=== PATIENT | female | born 1980 | race Caucasian/White ===

== ENCOUNTER → 2016-08-31 | Outpatient (CLI) | payer OTHER ==
--- NOTE | 2016-08-31 11:43 | USB ---
Reason for exam: clinical finding. Indicated problem(s): pain in the left breast. Physical Findings: Nurse Summary: bilateral nodularity, all soft, nodular, movable (nurse ts). US Breast LT Left breast ultrasound including all four quadrants, the retroareolar region and axilla demonstrates a 1.84 x 1.11 x 1.07cm lymph node at the axilla tail. These results were verbally communicated with the patient and result sheet given to the patient on 08/31/16. ASSESSMENT: Probably benign, BI-RAD 3 RECOMMENDATION: Clinical management of the left breast. Manage patient on a clinical basis.
== END ==
LOC: RADUSWWP 10:04
PROVIDERS: ATTEND Surgery
DX: N64.4 Mastodynia (principal)

== ENCOUNTER → 2017-02-10 | Outpatient (CLI) | payer OTHER ==
--- NOTE | 2017-02-10 14:50 | MM ---
Reason for exam: screening (asymptomatic). Physical Findings: Nurse did not find any significant physical abnormalities on exam. MG 3D Screening Mammo W/Cad Bilateral CC and MLO view(s) were taken. There are scattered fibroglandular densities. There is no discrete abnormality. These results were verbally communicated with the patient and result sheet given to the patient on 02/10/17. ASSESSMENT: Negative, BI-RAD 1 RECOMMENDATION: Routine screening mammogram of both breasts at age 38. Manage on a clinical basis with regard to left axilla pain.
== END | disposition home or self-care (01) ==
LOC: RADMAMWWP 12:59
PROVIDERS: ATTEND Obstetrics & Gynecology
DX: Z12.31 Encounter for screening mammogram for malignant neoplasm of breast (principal)
CPT/HCPCS: 77063; G0202

== ENCOUNTER → 2018-01-31 | Outpatient (CLI) | payer OTHER ==
[2018-01-31 09:49] LABS: ALT 49 U/L (9-52); AST 22 U/L (14-36); Albumin 4.1 g/dL (3.5-5.0); Alkaline Phosphatase 75 U/L (38-126); Anion Gap 12 mmol/L; Blood Urea Nitrogen 18 mg/dL (7-17); Calcium 9.2 mg/dL (8.4-10.2); Carbon Dioxide 23 mmol/L (22-30); Chloride 106 mmol/L (98-107); Glucose 89 mg/dL (74-99); Potassium 4.6 mmol/L (3.5-5.1); Sodium 141 mmol/L (137-145); Total Bilirubin 0.6 mg/dL (0.2-1.3)
[2018-01-31 09:51] LABS: HCT 40.8 % (34.0-46.0); HGB 13.6 gm/dL (11.4-16.0); MCH 30.5 pg (25.0-35.0); MCHC 33.4 g/dL (31.0-37.0); MCV 91.5 fL (80.0-100.0); Mean Platelet Volume 7.5; Platelet Count 220 k/uL (150-450); RBC 4.46 m/uL (3.80-5.40)
== END | disposition home or self-care (01) ==
LOC: LABWHC1 08:49
PROVIDERS: ATTEND Internal Medicine Cardiovascular Disease
DX: I48.91 Unspecified atrial fibrillation (principal)
CPT/HCPCS: 36415; 80053; 84439; 84443; 85027

== ENCOUNTER → 2020-02-18 | Outpatient (CLI) | payer BC ==
--- NOTE | 2020-02-19 10:05 | MM ---
Reason for exam: screening (asymptomatic). Last mammogram was performed 3 years ago. Physical Findings: A clinical breast exam by your physician is recommended on an annual basis and results should be correlated with mammographic findings. MG 3D Screening Mammo W/Cad Bilateral CC, MLO, and XCCL view(s) were taken. Prior study comparison: February 10, 2017, bilateral MG 3d screening mammo w/cad. There are scattered fibroglandular densities. There is no discrete abnormality. No significant changes when compared with prior studies. ASSESSMENT: Negative, BI-RAD 1 RECOMMENDATION: Routine screening mammogram of both breasts in 1 year.
== END | disposition home or self-care (01) ==
LOC: RADMAMWWP 15:57
PROVIDERS: ATTEND Obstetrics & Gynecology
DX: Z12.31 Encounter for screening mammogram for malignant neoplasm of breast (principal)
CPT/HCPCS: 77063; 77067

== ENCOUNTER → 2020-05-26 | Day surgery (SDC) | payer BC ==
[2020-05-22 12:40] VITALS: BMI 49.1
[~2020-05-26] MED LIST: LACTATED RINGERS 1,000 ML IV SCH; LIDOCAINE 1% (10MG/ML) FOR IV START INTRADERMA ONE; MIDAZOLAM 2 MG/2 ML VIAL ONE; PROPOFOL 10 MG/ML 20 ML VIAL IV ONE
[2020-05-26 07:36] VITALS: TEMP 97.9
--- NOTE | 2020-05-26 08:44 | P.PCN ---
Date of Procedure: 05/26/20 Description of Procedure: BRIEF HISTORY: Patient is a 39-year-old female presenting for outpatient colonoscopy for screening malignant neoplasm colon. 2 prior colonoscopies in the past. Personal history of colon cancer in mother at the age of 50. No prior polyps. She does report that her brother has had polyps removed. PROCEDURE PERFORMED: Colonoscopy. PREOPERATIVE DIAGNOSIS: Screening malignant neoplasm of the colon, family history of colon cancer in her mother at the age of 50, last colonoscopy 5 years ago. ESTIMATED BLOOD LOSS: Minimal. IV sedation per Anesthesia. PROCEDURE: After informed consent was obtained, the patient, was brought into the endoscopy unit. IV sedation was administered by Anesthesia under continuous monitoring. Digital rectal examination was normal. Initially the Olympus CF-190 flexible video colonoscope was then inserted in the rectum, gradually advanced into the cecum without any difficulty. Careful examination was performed as the scope was gradually being withdrawn. Ileocecal valve and the appendiceal orifice were visualized and appeared normal. Prep was excellent. Mucosa of the cecum, ascending colon, transverse colon, descending colon, sigmoid colon, and rectum appeared normal. Retroflexion was performed in the rectum and no lesions were seen, low-grade internal hemorrhoids seen. The patient tolerated the procedure well. IMPRESSION: Normal-appearing colon from rectum to cecum. RECOMMENDATIONS: Findings of this examination were discussed with the patient and her . Okay to resume diet. Okay to resume medications. Would recommend repeat colonoscopy in 5 years for family history of colon cancer.
[2020-05-26 08:48] VITALS: RESP 17
[2020-05-26 09:03] VITALS: BP 101/65; PULSE 87
== END ==
LOC: ORWHC2ENDO 07:22
PROVIDERS: ATTEND Internal Medicine
DX: Z12.11 Encounter for screening for malignant neoplasm of colon (principal); K64.8 Other hemorrhoids; Z80.0 Family history of malignant neoplasm of digestive organs; Z83.71 Family history of colonic polyps; E66.01 Morbid (severe) obesity due to excess calories; Z79.899 Other long term (current) drug therapy; Z98.890 Other specified postprocedural states; Z98.891 History of uterine scar from previous surgery; Z68.42 Body mass index [BMI] 45.0-49.9, adult
CPT/HCPCS: 81025; J2250; J2704; G0105

== ENCOUNTER 2020-06-18 11:25 | Observation (INO) | payer BC ==
[2020-06-18] MEDS ORDERED: SODIUM CHLORIDE 0.9% 1,000 ML IV STA (11:50)
[2020-06-18] MEDS ORDERED: ASPIRIN 81 MG PO STA (11:50)
[2020-06-18 12:14] LABS: Basophils # (A) 0.1 k/uL (0-0.2); Basophils % (A) 0 %; Eosinophils # (A) 0.2 k/uL (0-0.7); Eosinophils % (A) 2 %; HCT 45.1 % (34.0-46.0); HGB 14.9 gm/dL (11.4-16.0); Lymphocytes # (A) 3.1 k/uL (1.0-4.8); Lymphocytes % (A) 24 %; MCH 31.1 pg (25.0-35.0); MCV 94.1 fL (80.0-100.0); Mean Platelet Volume 8.2; Monocytes # (A) 0.5 k/uL (0-1.0); Monocytes % (A) 4 %; Neutrophils # (A) 9.1 k/uL (1.3-7.7); Neutrophils % (A) 69 %; Platelet Count 269 k/uL (150-450); RBC 4.79 m/uL (3.80-5.40); RDW 12.5 % (11.5-15.5); WBC 13.2 k/uL (3.8-10.6)
--- NOTE | 2020-06-18 12:14 | ED ---
General Adult HPI - General Chief complaint: Chest Pain Stated complaint: chest pain Time Seen by Provider: 06/18/20 11:43 Source: patient, RN notes reviewed Mode of arrival: ambulatory Limitations: no limitations - History of Present Illness Initial comments: This a 39-year-old female presents emergency Department chief complaint of chest fluttering, chest discomfort. Patient states this started on Monday she's had on-and-off symptoms. Patient is feeling more consistent she developed some discomfort in her chest today. She does have a history of A. fib. She is on no current medications. No prior blood thinners she states she was on metoprolol on the past. Patient states her heart rate is high but hasn't no sensation of fluttering she states that her heart rate went up and at home. Patient denies any headache dizziness no fevers chills no sick contacts no calf pain no history of PE or DVT - Related Data Home Medications Medication Instructions Recorded Confirmed Ascorbic Acid [Vitamin C] 500 mg PO DAILY 05/22/20 06/18/20 Cholecalciferol [Vitamin D3] 400 unit PO DAILY 05/22/20 06/18/20 Ubrogepant [Ubrelvy] 50 mg PO BID PRN 06/18/20 06/18/20 Allergies Allergy/AdvReac Type Severity Reaction Status Date / Time No Known Allergies Allergy Verified 06/18/20 12:53 Review of Systems ROS Statement: Those systems with pertinent positive or pertinent negative responses have been documented in the HPI. ROS Other: All systems not noted in ROS Statement are negative. Past Medical History Past Medical History: Atrial Fibrillation Additional Past Medical History / Comment(s): Family hx colon cancer History of Any Multi-Drug Resistant Organisms: None Reported Past Surgical History: Section, Tonsillectomy, Tubal Ligation Additional Past Surgical History / Comment(s): C-S x4. Colonoscopy x2. Eye muscle surg as child Past Anesthesia/Blood Transfusion Reactions: Previous Problems w/ Anesthesia Additional Past Anesthesia/Blood Transfusion Reaction / Comment(s): States BP goes low with anesthesia w/ C-S x1. Past Psychological History: No Psychological Hx Reported Smoking Status: Former smoker Past Alcohol Use History: None Reported Past Drug Use History: None Reported - Past Family History Mother Family Medical History: Cancer Additional Family Medical History / Comment(s): colon cancer Father Family Medical History: Deep Vein Thrombosis (DVT), Pulmonary Embolus General Exam Limitations: no limitations General appearance: alert, in no apparent distress Head exam: Present: atraumatic, normocephalic, normal inspection Eye exam: Present: normal appearance, PERRL, EOMI. Absent: scleral icterus, conjunctival injection, periorbital swelling Respiratory exam: Present: normal lung sounds bilaterally. Absent: respiratory distress, wheezes, rales, rhonchi, stridor Cardiovascular Exam: Present: normal rhythm, tachycardia, normal heart sounds. Absent: systolic murmur, diastolic murmur, rubs, gallop, clicks GI/Abdominal exam: Present: soft, normal bowel sounds. Absent: distended, tenderness, guarding, rebound, rigid Neurological exam: Present: alert, oriented X3, CN II-XII intact Skin exam: Present: warm, dry, intact, normal color. Absent: rash Course Vital Signs 06/18/20 06/18/20 11:27 12:25 Temperature 98.1 F Pulse Rate 96 102 H Respiratory 16 16 Rate Blood Pressure 131/85 130/76 O2 Sat by Pulse 98 96 Oximetry EKG Findings - EKG Comments: EKG Findings:: EKG performed at 11:41 sinus tachycardia rate of 118 PA 146 QRS 68 QT/QTC 322/451 Medical Decision Making - Medical Decision Making 39-year-old female presented for intermittent symptoms of tachycardia. Patient's said some chest palpitations, chest discomfort. Patient be admitted for cardiology evaluation. - Lab Data Result diagrams: 06/18/20 11:41 06/18/20 11:41 Lab Results 06/18/20 06/18/20 06/18/20 Range/Units 11:41 11:41 11:41 WBC 13.2 H (3.8-10.6) k/uL RBC 4.79 (3.80-5.40) m/uL Hgb 14.9 (11.4-16.0) gm/dL Hct 45.1 (34.0-46.0) % MCV 94.1 (80.0-100.0) fL MCH 31.1 (25.0-35.0) pg MCHC 33.0 (31.0-37.0) g/dL RDW 12.5 (11.5-15.5) % Plt Count 269 (150-450) k/uL Neutrophils % 69 % Lymphocytes % 24 % Monocytes % 4 % Eosinophils % 2 % Basophils % 0 % Neutrophils # 9.1 H (1.3-7.7) k/uL Lymphocytes # 3.1 (1.0-4.8) k/uL Monocytes # 0.5 (0-1.0) k/uL Eosinophils # 0.2 (0-0.7) k/uL Basophils # 0.1 (0-0.2) k/uL PT 9.5 (9.0-12.0) sec INR 0.9 (<1.2) APTT 26.2 (22.0-30.0) sec D-Dimer 0.18 (<0.60) mg/L FEU Sodium 136 L (137-145) mmol/L Potassium 3.9 (3.5-5.1) mmol/L Chloride 105 (98-107) mmol/L Carbon Dioxide 20 L (22-30) mmol/L Anion Gap 11 mmol/L BUN 12 (7-17) mg/dL Creatinine 0.68 (0.52-1.04) mg/dL Est GFR (CKD-EPI)AfAm >90 (>60 ml/min/1.73 sqM) Est GFR (CKD-EPI)NonAf >90 (>60 ml/min/1.73 sqM) Glucose 104 H (74-99) mg/dL Calcium 9.5 (8.4-10.2) mg/dL Magnesium 2.0 (1.6-2.3) mg/dL Total Bilirubin 0.6 (0.2-1.3) mg/dL AST 29 (14-36) U/L ALT 61 H (4-34) U/L Alkaline Phosphatase 104 (38-126) U/L Troponin I (0.000-0.034) ng/mL Total Protein 7.8 (6.3-8.2) g/dL Albumin 4.5 (3.5-5.0) g/dL Lipase 106 (23-300) U/L 06/18/20 Range/Units 11:41 WBC (3.8-10.6) k/uL RBC (3.80-5.40) m/uL Hgb (11.4-16.0) gm/dL Hct (34.0-46.0) % MCV (80.0-100.0) fL MCH (25.0-35.0) pg MCHC (31.0-37.0) g/dL RDW (11.5-15.5) % Plt Count (150-450) k/uL Neutrophils % % Lymphocytes % % Monocytes % % Eosinophils % % Basophils % % Neutrophils # (1.3-7.7) k/uL Lymphocytes # (1.0-4.8) k/uL Monocytes # (0-1.0) k/uL Eosinophils # (0-0.7) k/uL Basophils # (0-0.2) k/uL PT (9.0-12.0) sec INR (<1.2) APTT (22.0-30.0) sec D-Dimer (<0.60) mg/L FEU Sodium (137-145) mmol/L Potassium (3.5-5.1) mmol/L Chloride (98-107) mmol/L Carbon Dioxide (22-30) mmol/L Anion Gap mmol/L BUN (7-17) mg/dL Creatinine (0.52-1.04) mg/dL Est GFR (CKD-EPI)AfAm (>60 ml/min/1.73 sqM) Est GFR (CKD-EPI)NonAf (>60 ml/min/1.73 sqM) Glucose (74-99) mg/dL Calcium (8.4-10.2) mg/dL Magnesium (1.6-2.3) mg/dL Total Bilirubin (0.2-1.3) mg/dL AST (14-36) U/L ALT (4-34) U/L Alkaline Phosphatase (38-126) U/L Troponin I <0.012 (0.000-0.034) ng/mL Total Protein (6.3-8.2) g/dL Albumin (3.5-5.0) g/dL Lipase (23-300) U/L Disposition Clinical Impression: Chest pain, Tachycardia, Palpitations Disposition: ADMITTED IP TO THIS HOSP Condition: Fair Referrals: Perez Leonard DO [Primary Care Provider] - 1-2 days
--- NOTE | 2020-06-18 12:23 | XR ---
EXAMINATION TYPE: XR chest 2V DATE OF EXAM: 06/18/2020 COMPARISON: 01/19/2014 HISTORY: 39-year-old female with chest pain TECHNIQUE: PA and lateral views FINDINGS: The cardiomediastinal silhouette, aorta, and pulmonary vasculature are within normal limits. Lungs an d pleural spaces are clear. IMPRESSION: No acute cardiopulmonary process.
[2020-06-18 12:24] LABS: ALT 61 U/L (4-34); AST 29 U/L (14-36); African American GFR (CKD) >90 (>60 ml/min/1.73 sqM); Albumin 4.5 g/dL (3.5-5.0); Alkaline Phosphatase 104 U/L (38-126); Anion Gap 11 mmol/L; Blood Urea Nitrogen 12 mg/dL (7-17); Calcium 9.5 mg/dL (8.4-10.2); Carbon Dioxide 20 mmol/L (22-30); Chloride 105 mmol/L (98-107); Glucose 104 mg/dL (74-99); Lipase 106 U/L (23-300); Non-African American GFR(CKD) >90 (>60 ml/min/1.73 sqM); Potassium 3.9 mmol/L (3.5-5.1); Sodium 136 mmol/L (137-145); Total Bilirubin 0.6 mg/dL (0.2-1.3); Total Protein 7.8 g/dL (6.3-8.2)
[2020-06-18 12:26] LABS: D-Dimer 0.18 mg/L FEU (<0.60); INR 0.9 (<1.2); Partial Thromboplastin Time 26.2 sec (22.0-30.0); Prothrombin Time 9.5 sec (9.0-12.0)
[2020-06-18] MEDS ORDERED: NITROGLYCERIN SL TABS 0.4 MG TAB SUBLINGUAL PRN (13:47)
[2020-06-18] MEDS ORDERED: INFLUENZA VACCINE (6 MOS+) 60 MCG/0.5 ML SYRINGE IM ONE (15:16)
[2020-06-18 17:05] VITALS: RESP 18
[2020-06-18] MEDS ORDERED: ACETAMINOPHEN TAB 500 MG TAB PO PRN (19:30)
[2020-06-19 07:17] LABS: Cholesterol 155 mg/dL (<200); HDL Cholesterol 32 mg/dL (40-60); LDL Cholesterol,Calculated 102 mg/dL (0-99); Triglycerides 104 mg/dL (<150)
[2020-06-19 08:25] VITALS: BP 122/85; PULSE 72; TEMP 97.8
[2020-06-19] MEDS ORDERED: ASPIRIN 325 MG TAB PO SCH (09:00)
--- NOTE | 2020-06-19 09:39 | P.CRDCN ---
History of Present Illness Consult date: 06/19/20 History of present illness: CHIEF COMPLAINT: Palpitations HISTORY OF PRESENT ILLNESS: This is a 39-year old female with a past medical history significant for atrial fibrillation and former nicotine dependence. Patient used to follow in the office with Dr. Saldana but has not seen him in many years. We have been asked to see the patient in consultation for palpitations. Patient examined this morning at the bedside. She reports a feeling of her heart racing over the past 2-3 days. She reports some mild chest pressure when she feels her heart racing. Otherwise she denies having any chest pain or discomfort. She denies shortness of breath. Telemetry reviewed with no signs of atrial fibrillation. Heart rate has been controlled. Blood pressure this morning 122/85. Heart rate in the 70s. Patient reports having her thyroid checked at her PCP within the last month and states it was normal. DIAGNOSTICS: EKG reveals sinus tachycardia with no acute signs of ischemia Chest xray no acute process Laboratory data: WBC 12.2. Hemoglobin 14.9. Platelet count 269. D-dimer 0.18. Sodium 136. Potassium 3.9. BUN 12. Creatinine 0.68. Magnesium 2.0. Troponin negative 3. Current home cardiac medications include none REVIEW OF SYSTEMS: At the time of my exam: CONSTITUTIONAL: Denies fever or chills. HEENT: Denies blurred vision, vision changes, or eye pain. Denies hemoptysis CARDIOVASCULAR: Denies chest pain, orthopnea, PND or palpitations RESPIRATORY: No shortness of breath. GASTROINTESTINAL: Denies abdominal pain. Denies nausea or vomiting. HEMATOLOGIC: Denies bleeding disorders. GENITOURINARY: Denies any blood in urine. SKIN: Denies pruitis. Denies rash. PHYSICAL EXAM: VITAL SIGNS: Reviewed. GENERAL: Well-developed in no acute distress. HEENT: Head is normocephalic. Pupils are equal, round. Sclerae anicteric. Mucous membranes of the mouth are moist. Neck supple. No JVD or thyromegaly LUNGS: Respirations even and unlabored. Lungs essentially clear to auscultation bilaterally. HEART: Regular rate and rhythm. S1 and S2 heard. ABDOMEN: Soft. Nondistended. Nontender. EXTREMITIES: Normal range of motion. No clubbing or cyanosis. Peripheral pulses intact. No lower extremity edema NEUROLOGIC: Awake and alert. Oriented x 3. ASSESSMENT: Palpitations History of atrial fibrillation History of nicotine dependence, in remission Obesity: BMI 49.1 PLAN: Telemetry reviewed without evidence of atrial fibrillation. Patient's heart rate has been controlled since being in the hospital. Obtain 2-D echo to assess cardiac structure and function Patient to have event monitor placed at the time of discharge to evaluate for any arrhythmias She may be discharged home today and follow up outpatient with Dr. Harrington Nurse practitioner note has been reviewed by physician. Signing provider agrees with the documented findings, assessment, and plan of care. Past Medical History Past Medical History: Atrial Fibrillation Additional Past Medical History / Comment(s): Family hx colon cancer History of Any Multi-Drug Resistant Organisms: None Reported Past Surgical History: Section, Tonsillectomy, Tubal Ligation Additional Past Surgical History / Comment(s): C-S x4. colonoscopy x2 normal. Eye muscle surg as child Past Anesthesia/Blood Transfusion Reactions: Previous Problems w/ Anesthesia Additional Past Anesthesia/Blood Transfusion Reaction / Comment(s): States BP went low with anesthesia w/ C-S x1. Smoking Status: Never smoker - Past Family History Mother Family Medical History: Cancer Additional Family Medical History / Comment(s): colon cancer Father Family Medical History: Pneumonia, Pulmonary Embolus Additional Family Medical History / Comment(s): Father with PE while he had pneumonia. Medications and Allergies Home Medications Medication Instructions Recorded Confirmed Type Ascorbic Acid [Vitamin C] 500 mg PO DAILY 05/22/20 06/18/20 History Cholecalciferol [Vitamin D3] 400 unit PO DAILY 05/22/20 06/18/20 History Ubrogepant [Ubrelvy] 50 mg PO BID PRN 06/18/20 06/18/20 History Allergies Allergy/AdvReac Type Severity Reaction Status Date / Time No Known Allergies Allergy Verified 06/18/20 12:53 Physical Exam Vitals: Vital Signs Temp Pulse Pulse Resp BP BP Pulse Ox 06/19/20 08:59 72 18 06/19/20 08:23 97.8 F 72 18 122/85 97 06/19/20 02:07 88 06/19/20 02:06 98.0 F 88 160/70 93 L 06/18/20 19:39 84 06/18/20 19:37 98.1 F 84 122/74 95 06/18/20 18:02 87 06/18/20 17:55 98.5 F 87 18 141/87 99 06/18/20 17:02 98.6 F 87 18 123/62 98 06/18/20 12:25 102 H 16 130/76 96 06/18/20 11:27 98.1 F 96 16 131/85 98 Intake and Output 06/18/20 06/19/20 06/19/20 22:59 06:59 14:59 Intake Total 440 0 Output Total 300 Balance 440 -300 Intake: Oral 440 0 Output: Urine 300 Other: Voiding Method Toilet Toilet Toilet # Voids 1 Weight 117.934 kg Results 06/18/20 11:41 06/18/20 11:41 Cardiac Enzymes 06/18/20 06/18/20 06/18/20 Range/Units 11:41 11:41 14:53 AST 29 (14-36) U/L Troponin I <0.012 <0.012 (0.000-0.034) ng/mL 06/18/20 Range/Units 17:46 AST (14-36) U/L Troponin I <0.012 (0.000-0.034) ng/mL Coagulation 06/18/20 Range/Units 11:41 PT 9.5 (9.0-12.0) sec APTT 26.2 (22.0-30.0) sec Lipids 06/19/20 Range/Units 06:54 Triglycerides 104 (<150) mg/dL Cholesterol 155 (<200) mg/dL HDL Cholesterol 32 L (40-60) mg/dL CBC 06/18/20 Range/Units 11:41 WBC 13.2 H (3.8-10.6) k/uL RBC 4.79 (3.80-5.40) m/uL Hgb 14.9 (11.4-16.0) gm/dL Hct 45.1 (34.0-46.0) % Plt Count 269 (150-450) k/uL Comprehensive Metabolic Panel 06/18/20 Range/Units 11:41 Sodium 136 L (137-145) mmol/L Potassium 3.9 (3.5-5.1) mmol/L Chloride 105 (98-107) mmol/L Carbon Dioxide 20 L (22-30) mmol/L BUN 12 (7-17) mg/dL Creatinine 0.68 (0.52-1.04) mg/dL Glucose 104 H (74-99) mg/dL Calcium 9.5 (8.4-10.2) mg/dL AST 29 (14-36) U/L ALT 61 H (4-34) U/L Alkaline Phosphatase 104 (38-126) U/L Total Protein 7.8 (6.3-8.2) g/dL Albumin 4.5 (3.5-5.0) g/dL Current Medications Generic Name Dose Route Start Last Admin Trade Name Freq PRN Reason Stop Dose Admin Acetaminophen 500 mg 06/18/20 19:30 06/18/20 19:47 Acetaminophen Tab 500 Mg Tab PO 500 mg Q4HR PRN Administration Fever and/ or Pain Aspirin 325 mg 06/19/20 09:00 06/19/20 08:31 Aspirin 325 Mg Tab PO 325 mg DAILY YUNG Administration Nitroglycerin 0.4 mg 06/18/20 13:47 Nitroglycerin Sl Tabs 0.4 Mg Tab SUBLINGUAL Q5M PRN Chest Pain Intake and Output 06/18/20 06/19/20 06/19/20 22:59 06:59 14:59 Intake Total 440 0 Output Total 300 Balance 440 -300 Intake: Oral 440 0 Output: Urine 300 Other: Voiding Method Toilet Toilet Toilet # Voids 1 Weight 117.934 kg 06/18/20 11:41 06/18/20 11:41
--- NOTE | 2020-06-19 10:50 | ECHOF ---
Referral Reason:chest pain MEASUREMENTS -------- HEIGHT: 154.9 cm WEIGHT: 117.9 kg BP: 160/70 RVIDd: 3.6 cm (< 3.3) IVSd: 1.0 cm (0.6 - 1.1) LVIDd: 4.6 cm (3.9 - 5.3) LVPWd: 1.0 cm (0.6 - 1.1) IVSs: 1.5 cm LVIDs: 3.4 cm LVPWs: 1.6 cm LA Diam: 3.7 cm (2.7 - 3.8) LAESV Index (A-L): 21.60 ml/m Ao Diam: 2.8 cm (2.0 - 3.7) AV Cusp: 2.0 cm (1.5 - 2.6) MV EXCURSION: 15.568 mm (> 18.000) MV EF SLOPE: 116 mm/s (70 - 150) EPSS: 0.3 cm MV E Konrad: 0.90 m/s MV DecT: 168 ms MV A Konrad: 0.75 m/s MV E/A Ratio: 1.21 RAP: 5.00 mmHg RVSP: 29.63 mmHg FINDINGS -------- Sinus rhythm. This was a technically good study. The left ventricular size is normal. Left ventricular wall thickness is normal. Overall left vent ricular systolic function is normal with, an EF between 60 - 65 %. The right ventricle is mildly enlarged. Normal LA size by volume 22+/-6 ml/m2. The right atrium is normal in size. Interatrial and interventricular septum intact. The aortic valve is trileaflet and appears structurally normal. Mild mitral regurgitation is present. Mild tricuspid regurgitation present. Right ventricular systolic pressure is normal at < 35 mmHg. Trace/mild (physiologic) pulmonic regurgitation. The aortic root size is normal. Normal inferior vena cava with normal inspiratory collapse consistent with estimated right atrial pre ssure of 5 mmHg. There is no pericardial effusion. CONCLUSIONS -------- 1. The left ventricular size is normal. 2. Left ventricular wall thickness is normal. 3. Overall left ventricular systolic function is normal with, an EF between 60 - 65 %. 4. The right ventricle is mildly enlarged. 5. Normal LA size by volume 22+/-6 ml/m2. 6. Mild mitral regurgitation is present. 7. Mild tricuspid regurgitation present. 8. Trace/mild (physiologic) pulmonic regurgitation. 9. There is no pericardial effusion. [employer]: RENEE Gutierrez
--- NOTE | 2020-06-19 18:02 | P.HPIM ---
History of Present Illness H&P Date: 06/19/20 Chief Complaint: Fluttering the chest History of presenting complaint: This is a pleasant 39-year-old patient of Dr. Michelle Leonard. Rather unremarkable pulse medical history. Has had atrial fibrillation in the past. Last 5 days patient with having fluttering sensation in the chest off and on. Became more persistent for about 4 hours yesterday decided to come in. No pressure. No dizziness or lightheadedness. No shortness of breath. Telemetry strip showed sinus rhythm.. Patient does drink a lot of coffee at home. Has 4 kids at home. 's out to work traveling. Review of systems: GEN.: None EYES: None HEENT: None NECK: None RESPIRATORY: None CARDIOVASCULAR: As above GASTROINTESTINAL: None GENITOURINARY: None MUSCULOSKELETAL: None LYMPHATICS: None HEMATOLOGICAL: None PSYCHIATRY: None NEUROLOGICAL: None Past medical history to include: Paroxysmal atrial fibrillation Social history: . 4 children at home. Smoked for 15 years stopped in 2004. No alcohol. Does drink excessive coffee. Physical examination: VITAL SIGNS: 98.1, 96, 16, 131/85, 98% room air GENERAL: BMI 49.1, sitting up, comfortable. EYES: Pupils equal. Conjunctiva normal. HEENT: External appearance of nose and ears normal, oral cavity grossly normal. NECK: JVD not raised; masses not palpable. HEART: First and second heart sounds are normal; no edema. LUNGS: Respiratory rate normal; clear to auscultation. ABDOMEN: Soft, nontender, liver spleen not palpable, no masses palpable. PSYCH: Alert and oriented x3; mood and affect normal. NEUROLOGICAL: Cranial nerves grossly intact; no facial asymmetry, power and sensation grossly intact. 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 Patient placed on telemetry. Consult about caffeine. Past Medical History Past Medical History: Atrial Fibrillation Additional Past Medical History / Comment(s): Family hx colon cancer History of Any Multi-Drug Resistant Organisms: None Reported Past Surgical History: Section, Tonsillectomy, Tubal Ligation Additional Past Surgical History / Comment(s): C-S x4. colonoscopy x2 normal. Eye muscle surg as child Past Anesthesia/Blood Transfusion Reactions: Previous Problems w/ Anesthesia Additional Past Anesthesia/Blood Transfusion Reaction / Comment(s): States BP went low with anesthesia w/ C-S x1. Smoking Status: Never smoker - Past Family History Mother Family Medical History: Cancer Additional Family Medical History / Comment(s): colon cancer Father Family Medical History: Pneumonia, Pulmonary Embolus Additional Family Medical History / Comment(s): Father with PE while he had pneumonia. Medications and Allergies Home Medications Medication Instructions Recorded Confirmed Type Ascorbic Acid [Vitamin C] 500 mg PO DAILY 05/22/20 06/18/20 History Cholecalciferol [Vitamin D3] 400 unit PO DAILY 05/22/20 06/18/20 History Ubrogepant [Ubrelvy] 50 mg PO BID PRN 06/18/20 06/18/20 History Allergies Allergy/AdvReac Type Severity Reaction Status Date / Time No Known Allergies Allergy Verified 06/18/20 12:53 Physical Exam Vitals: Vital Signs Temp Pulse Pulse Resp BP BP Pulse Ox 06/19/20 08:59 72 18 06/19/20 08:23 97.8 F 72 18 122/85 97 06/19/20 02:07 88 06/19/20 02:06 98.0 F 88 160/70 93 L 06/18/20 19:39 84 06/18/20 19:37 98.1 F 84 122/74 95 06/18/20 18:02 87 06/18/20 17:55 98.5 F 87 18 141/87 99 06/18/20 17:02 98.6 F 87 18 123/62 98 06/18/20 12:25 102 H 16 130/76 96 06/18/20 11:27 98.1 F 96 16 131/85 98 Intake and Output 06/18/20 06/19/20 06/19/20 22:59 06:59 14:59 Intake Total 440 0 Output Total 300 Balance 440 -300 Intake: Oral 440 0 Output: Urine 300 Other: Voiding Method Toilet Toilet Toilet # Voids 1 Weight 117.934 kg Results CBC & Chem 7: 06/18/20 11:41 06/18/20 11:41 Labs: Abnormal Lab Results - Last 24 Hours (Table) 06/18/20 06/18/20 06/19/20 Range/Units 11:41 11:41 06:54 WBC 13.2 H (3.8-10.6) k/uL Neutrophils # 9.1 H (1.3-7.7) k/uL Sodium 136 L (137-145) mmol/L Carbon Dioxide 20 L (22-30) mmol/L Glucose 104 H (74-99) mg/dL ALT 61 H (4-34) U/L LDL Cholesterol, Calc 102 H (0-99) mg/dL HDL Cholesterol 32 L (40-60) mg/dL Thrombosis Risk Factor Assmnt - Choose All That Apply Any of the Below Risk Factors Present?: Yes Each Factor Represents 1 point: Age 41-60 years, Obesity (BMI >25) Other Risk Factors: No Other congenital or acquired thrombophilia - If yes, enter type in comment: No Thrombosis Risk Factor Assessment Total Risk Factor Score: 2 Thrombosis Risk Factor Assessment Level: Low Risk
--- NOTE | 2020-06-19 18:12 | P.DS ---
Providers Date of admission: 06/18/20 13:55 Expected date of discharge: 06/19/20 Attending physician: Elvin Gonzalez Primary care physician: Perez Leonard [place] [facility] Course: Chief Complaint: Fluttering the chest History of presenting complaint: This is a pleasant 39-year-old patient of Dr. Michelle Leonard. Rather unremarkable pulse medical history. Has had atrial fibrillation in the past. Last 5 days patient with having fluttering sensation in the chest off and on. Became more persistent for about 4 hours yesterday decided to come in. No pressure. No dizziness or lightheadedness. No shortness of breath. Telemetry strip showed sinus rhythm.. Patient does drink a lot of coffee at home. Has 4 kids at home. 's out to work traveling. 2-D echocardiogram unremarkable. Telemetry shows sinus rhythm. Sinus tachycardia. [place] to have excessive caffeine related disorder. Patient advised about cutting back on caffeine intake. Seen by cartilage. Patient will going over the event monitor. Consultation: Dr. Harrington from cardiology Physical examination: VITAL SIGNS: 98.5, 87, 18, 141/87, 99% room air GENERAL: BMI 49.1, sitting up, comfortable. EYES: Pupils equal. Conjunctiva normal. NECK: JVD not raised; masses not palpable. HEART: First and second heart sounds are normal; no edema. LUNGS: Respiratory rate normal; clear to auscultation. ABDOMEN: Soft, nontender, liver spleen not palpable, no masses palpable. PSYCH: Alert and oriented x3; mood and affect normal. 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, symptomatic -Morbid obesity BMI 49.1 -Leukocytosis with no clinical evidence of infection Disposition: Home Patient Condition at Discharge: Stable Plan - Discharge Summary Discharge Rx Participant: No New Discharge Prescriptions: Continue Cholecalciferol [Vitamin D3] 400 unit PO DAILY Ascorbic Acid [Vitamin C] 500 mg PO DAILY Ubrogepant [Ubrelvy] 50 mg PO BID PRN PRN Reason: Migraine Headache Discharge Medication List Ascorbic Acid [Vitamin C] 500 mg PO DAILY 05/22/20 [History] Cholecalciferol [Vitamin D3] 400 unit PO DAILY 05/22/20 [History] Ubrogepant [Ubrelvy] 50 mg PO BID PRN 06/18/20 [History] Follow up Appointment(s)/Referral(s): Perez Leonard DO [Primary Care Provider] - 06/23/20 3:00 pm Jocelyn Harrington MD [STAFF PHYSICIAN] - 07/28/20 3:15 pm Patient Instructions/Handouts: Chest Pain (DC), Holter Monitor (GEN) Activity/Diet/Wound Care/Special Instructions: event monitor per cardiology Discharge Disposition: HOME SELF-CARE
== END 2020-06-19 13:14 | disposition home or self-care (01) ==
LOC: EC 11:25 → 3NCARDOBS 13:55
PROVIDERS: ADMIT Hospitalist; ATTEND Hospitalist
DX: R07.9 Chest pain, unspecified (principal); I48.91 Unspecified atrial fibrillation; F15.19 Other stimulant abuse with unspecified stimulant-induced disorder; D72.829 Elevated white blood cell count, unspecified; E66.01 Morbid (severe) obesity due to excess calories; Z68.42 Body mass index [BMI] 45.0-49.9, adult; Z80.0 Family history of malignant neoplasm of digestive organs; Z87.891 Personal history of nicotine dependence; R00.0 Tachycardia, unspecified
CPT/HCPCS: 93005 ×2; 96360; 96361; 99285; 36415; 93306; 93270; 85379; 80061; 80053; 83690; 83735; 84484; 85025; 85610; 85730; 71046; 90686; G0378 ×2; G0008

== ENCOUNTER → 2021-02-25 | Outpatient (CLI) | payer BC ==
--- NOTE | 2021-03-01 14:42 | MM ---
Reason for exam: screening (asymptomatic). Last mammogram was performed 1 year ago. Physical Findings: A clinical breast exam by your physician is recommended on an annual basis and results should be correlated with mammographic findings. MG 3D Screening Mammo W/Cad Bilateral CC, MLO, and XCCL view(s) were taken. Prior study comparison: February 18, 2020, bilateral MG 3d screening mammo w/cad. February 10, 2017, bilateral MG 3d screening mammo w/cad. There are scattered fibroglandular densities. No significant changes when compared with prior studies. ASSESSMENT: Benign, BI-RAD 2 RECOMMENDATION: Routine screening mammogram of both breasts in 1 year.
== END | disposition home or self-care (01) ==
LOC: RADMAMWWP 16:01
PROVIDERS: ATTEND Obstetrics & Gynecology
DX: Z12.31 Encounter for screening mammogram for malignant neoplasm of breast (principal)
CPT/HCPCS: 77063; 77067

== ENCOUNTER → 2022-03-22 | Outpatient (CLI) | payer BC ==
--- NOTE | 2022-03-23 08:40 | MM ---
Reason for Exam: Screening (asymptomatic). Last mammogram was performed 1 year(s) and 1 month(s) ago. Patient History: Menarche at age 12. First Full-Term at age 26. Patient has history of breast feeding. Last menstrual period: 03/14/2022 Risk Values: Joycelyn 5 year model risk: 0.7%. NCI Lifetime model risk: 9.9%. Prior Study Comparison: 02/10/2017 Bilateral Screening Mammogram, [facility]. 02/18/2020 Bilateral Screening Mammogram, [facility]. 02/25/2021 Bilateral Screening Mammogram, [facility]. Tissue Density: There are scattered fibroglandular densities. Findings: Analyzed By CAD. No suspicious groups of microcalcifications, spiculated or lobular masses, architectural distortion or other secondary signs of malignancy are mammographically apparent. Overall Assessment: Benign, BI-RAD 2 Management: Screening Mammogram of both breasts in 1 year. A negative mammogram report should not preclude additional follow up of suspicious palpable abnormalities. Patient should continue monthly self breast exam. A clinical breast exam by your physician is recommended on an annual basis and results should be correlated with mammographic findings. Electronically signed and approved by: Ziyad Gonzales D.O. Radiologis
== END | disposition home or self-care (01) ==
LOC: RADMAMWWP 11:10
PROVIDERS: ATTEND Obstetrics & Gynecology
DX: Z12.31 Encounter for screening mammogram for malignant neoplasm of breast (principal)
CPT/HCPCS: 77063; 77067

== ENCOUNTER → 2022-04-27 | Outpatient (CLI) | payer BC ==
--- NOTE | 2022-04-27 15:46 | P.SLEEP ---
History of Present Illness DATE: 04/27/2022 CONSULTATION/NEW PATIENT EVALUATION HISTORY OF PRESENT ILLNESS/SLEEP-WAKE EVALUATION: 41 year old lady had been evaluated in the sleep center for possible obstructive sleep apnea hypopnea syndrome. SLEEP SCHEDULE: Usually sleep schedule from 10 PM to 6 AM. FALLING ASLEEP: Sometimes patient has problems with falling asleep. DURING SLEEP: Patient snores loudly, has episodes of choking while falling asleep, witnessed episodes of sleep apneas by her . Positive history of palpitations and heartburn. No history of hypnogogical hallucinations or cataplexy. Possible history of sleep off paralysis. DURING THE DAY/WAKE STATE: [In the morning patient wake up tired. Falling asleep during the day, has problems with memory and concentration]. [place] sleepiness scale is increased to 12. Patient sonja nap at 1 PM. PAST MEDICAL HISTORY: Headaches, acid reflux,Covid 19 2, last in March 2022. PAST SURGICAL HISTORY: Tonsillectomy, surgery for muscle of the eye at age of 3. MEDICATIONS: Albuterol,ubrelvy. SOCIAL HISTORY: Negative for smoking, alcohol consumption none. FAMILY HISTORY: Hypertension, heart problems, asthma, epilepsy, sleep apnea. REVIEW OF SYSTEMS: Loud snoring, witnessed sleep apneas, sleepiness. No fevers. No double vision. No recent chest pain. No shortness of breath. No abdominal pain. No bleeding episodes. No blood in urine. No seizure episodes. PHYSICAL EXAMINATION: GENERAL: A pleasant patient without any distress. VITAL SIGNS: BP 119/83, HR 84, RR 16, weight 268 pounds, height 5 foot 3 inches, body mass index 47.6, temperature 98.6, oxygen saturation at room air 98%. HEENT: PERRLA, EOMI. Evaluation of oropharynx showed tongue protrudes midline, low position of soft palate Mallampati 3. NECK: Supple. No JVD. Thyroid is not palpable. 17-1/2 inches in circumference. LUNGS: Clear to percussion and to auscultation. Good air exchange. No wheezing or rhonchi. HEART: S1, S2 regular. No murmurs, gallops or rubs. ABDOMEN: Soft and nontender. Bowel sounds are present. No organomegaly appreciated. EXTREMITIES: No clubbing or cyanosis. STUD SETTER: Awake, alert, and oriented x3. Cranial nerves 2 to 7 intact. There is no fasciculation or atrophy noted. No focal deficits observed. ASSESSMENT: 1. Loud snoring, witnessed episodes sleep apneas, sleepiness E [place]worth Sleepiness Scale increased to 12, whide neck 17-1/2 inches in circumference. Obstructive sleep apnea hypopnea syndrome. 2. Possible episodes of sleep off paralysis. 3 obesity body mass index 47.6. 4. Headaches. 5 history of Covid 19 2, last in March 2022. 6.acid reflux[]. 7. Status post tonsillectomy. []. PLAN: 1. Polysomnography for evaluation of patient's breathing during sleep. 2. CPAP/BiPAP titration if sleep study confirms obstructive sleep apnea- hypopnea syndrome. 3. Preferable position during sleep on the side. 4. No driving if patient feels any sleepiness. Patient is aware of civil and criminal liability for unsafe driving. 5. Sleep hygiene with regular sleep time for at least 7.5-8 hours. 6. Watching and losing weight. Thank you very much for referring this patient for consultation. Sincerely, Dalton Mahajan MD, PhD, FAASM. Diplomat of [place] [employer], Sleep Medicine Board by [place] [employer] [place] [employer] Graduate Fellow of [facility] [place] Past Medical History Past Medical History: Atrial Fibrillation Additional Past Medical History / Comment(s): Family hx colon cancer History of Any Multi-Drug Resistant Organisms: None Reported Past Surgical History: Section, Tonsillectomy, Tubal Ligation Additional Past Surgical History / Comment(s): C-S x4. colonoscopy x2 normal. Eye muscle surg as child Past Anesthesia/Blood Transfusion Reactions: Previous Problems w/ Anesthesia Additional Past Anesthesia/Blood Transfusion Reaction / Comment(s): States BP went low with anesthesia w/ C-S x1. Smoking Status: Never smoker - Past Family History Mother Family Medical History: Cancer Additional Family Medical History / Comment(s): colon cancer Father Family Medical History: Pneumonia, Pulmonary Embolus Additional Family Medical History / Comment(s): Father with PE while he had pneumonia. Medications and Allergies Home Medications Medication Instructions Recorded Confirmed Type Ascorbic Acid [Vitamin C] 500 mg PO DAILY 05/22/20 06/18/20 History Cholecalciferol [Vitamin D3 (10 400 unit PO DAILY 05/22/20 06/18/20 History Mcg = 400 Iu)] Ubrogepant [Ubrelvy] 50 mg PO BID PRN 06/18/20 06/18/20 History Allergies Allergy/AdvReac Type Severity Reaction Status Date / Time No Known Allergies Allergy Verified 06/18/20 12:53 Sleep Note - Sleep Note Sleep Note: Temperature: Pulse Rate: Respiratory Rate: Blood Pressure: SpO2: Height: Weight: BMI: Neck Circumference:
== END ==
LOC: SLEEP 14:42
PROVIDERS: ATTEND Internal Medicine
DX: G47.33 Obstructive sleep apnea (adult) (pediatric) (principal); E66.9 Obesity, unspecified; Z68.42 Body mass index [BMI] 45.0-49.9, adult; R51.9 Headache, unspecified; Z86.16 Personal history of COVID-19; K21.9 Gastro-esophageal reflux disease without esophagitis; Z90.09 Acquired absence of other part of head and neck
CPT/HCPCS: 99211

== ENCOUNTER 2022-11-29 06:15 | Observation (INO) | payer BC ==
[2022-11-29] MEDS ORDERED: SODIUM CHLORIDE 0.9% 1,000 ML IV STA (06:49)
[2022-11-29] MEDS ORDERED: KETOROLAC 15 MG/ML 1 ML VIAL IVP STA (06:49)
[2022-11-29] MEDS ORDERED: FAMOTIDINE 20 MG/2 ML VIAL IV STA (06:50)
--- NOTE | 2022-11-29 06:53 | ED ---
Abdominal Pain HPI - General Chief Complaint: Abdominal Pain Stated Complaint: abd pain Time Seen by Provider: 11/29/22 06:40 Source: patient, RN notes reviewed, old records reviewed Mode of arrival: ambulatory Limitations: no limitations - History of Present Illness Initial Comments: This is a nontoxic-appearing 41-year-old female that presents ambulatory with complaints of diffuse abdominal discomfort and bloating for the past 24 hours. Patient states that she feels if she could just belch she would feel better. Making her nauseated but denies any vomiting or diarrhea. States she has had some constipation problems. Denies any fevers. States that her daughter was recently diagnosed with strep throat. States had one episode of atrial fibr illation over 10 years ago. MD Complaint: abdominal pain -: days(s) (1) Location: diffuse Radiation: none Severity scale (1-10): 4 Quality: other (bloated) Improves With: nothing Associated Symptoms: nausea - Related Data LMP (females 10-50): this week Patient : No Home Medications Medication Instructions Recorded Confirmed Ubrogepant [Ubrelvy] 50 mg PO BID PRN 06/18/20 11/29/22 Allergies Allergy/AdvReac Type Severity Reaction Status Date / Time No Known Allergies Allergy Verified 11/29/22 08:49 Review of Systems ROS Statement: Those systems with pertinent positive or pertinent negative responses have been documented in the HPI. ROS Other: All systems not noted in ROS Statement are negative. Past Medical History Past Medical History: Atrial Fibrillation Additional Past Medical History / Comment(s): Family hx colon cancer History of Any Multi-Drug Resistant Organisms: None Reported Past Surgical History: Section, Tonsillectomy, Tubal Ligation Additional Past Surgical History / Comment(s): C-S x4. colonoscopy x2 normal. Eye muscle surg as child Past Anesthesia/Blood Transfusion Reactions: Previous Problems w/ Anesthesia Additional Past Anesthesia/Blood Transfusion Reaction / Comment(s): States BP went low with anesthesia w/ C-S x1. Past Psychological History: No Psychological Hx Reported Smoking Status: Never smoker Past Alcohol Use History: None Reported Past Drug Use History: None Reported - Past Family History Mother Family Medical History: Cancer Additional Family Medical History / Comment(s): colon cancer Father Family Medical History: Pneumonia, Pulmonary Embolus Additional Family Medical History / Comment(s): Father with PE while he had pneumonia. General Exam Limitations: no limitations General appearance: alert, in no apparent distress Head exam: Present: atraumatic Eye exam: Present: normal appearance. Absent: scleral icterus, conjunctival injection, periorbital swelling, periorbital tenderness ENT exam: Present: normal exam, normal oropharynx, mucous membranes moist Neck exam: Present: full ROM. Absent: tenderness, meningismus Respiratory exam: Present: normal lung sounds bilaterally. Absent: respiratory distress, accessory muscle use Cardiovascular Exam: Present: tachycardia GI/Abdominal exam: Present: soft. Absent: distended, tenderness, guarding, rebound, rigid Extremities exam: Present: full ROM, normal capillary refill. Absent: tenderness, pedal edema Back exam: Absent: tenderness, CVA tenderness (R), CVA tenderness (L), rash noted Neurological exam: Present: alert, oriented X3, normal gait Psychiatric exam: Present: normal affect, normal mood Skin exam: Present: warm, dry, normal color. Absent: cyanosis, diaphoretic, petechiae, pallor Course Vital Signs 11/29/22 11/29/22 06:22 08:54 Temperature 98.4 F Pulse Rate 114 H 100 Respiratory 16 16 Rate Blood Pressure 138/83 130/92 O2 Sat by Pulse 98 96 Oximetry - Reevaluation(s) Reevaluation #1: 11/29/22 07:52 Patient states pain is improved after Toradol and Pepcid. Time: 07:52 Reevaluation #2: 11/29/22 09:[address] Manuel who recommended Zosyn, NPO, and will see her for possible cholecystectomy today. Time: 09:12 Medical Decision Making - Medical Decision Making Patient does have an history of atrial fibrillation, one episode 10 years ago no recurrence. Does not take any blood thinners daily. EKG shows ventricular rate 98, AL interval 0.154, QRS 0.81, QTC 0.382, sinus rhythm. No change compared to old 06/18/2020 Labs show mild leukocytosis at 13.0. LFTs within normal limits. CT the abdomen shows cholelithiasis with acute cholecystitis. Vital signs are stable. Patient's pain was relieved after Pepcid, Toradol and IV fluids. She was notified of the CT results and is agreeable to admission. Case was discussed with Dr. Manuel, Zosyn was started and patient made NPO for pending surgery. Case discussed with Dr. Álvarez. Was pt. sent in by a medical professional or institution (, PA, HYDROSTATIC TESTER, urgent care, hospital, or custodial...) When possible be specific @ -No Did you speak to anyone other than the patient for history (EMS, parent, family, police, friend...)? What history was obtained from this source @ -No Did you review nursing and triage notes (agree or disagree)? Why? @ -I reviewed and agree with nursing and triage notes Were old charts reviewed (outside hosp., previous admission, EMS record, old EKG, old radiological studies, urgent care reports/EKG's, custodial records)? Report findings @ -Old EKG Differential Diagnosis (chest pain, altered mental status, abdominal pain women, abdominal pain men, vaginal bleeding, weakness, fever, dyspnea, syncope, headache, dizziness, GI bleed, back pain, seizure, CVA, palpatations, mental health, musculoskeletal)? @ -Differential Abdominal Pain Women: Appendicitis, Cholecystitis, diverticulosis, ischemic bowel, pancreatitis, hepatitis, UTI, gastroenteritis, AAA, incarcerated hernia, bowel obstruction, constipation, inflammatory bowel, hepatitis, peptic ulcer disease, splenic infarction, perforated viscus, vulvitis, ovarian torsion, PID, kidney stone, placenta abruption, this is not meant to be an all-inclusive list EKG interpreted by me (3pts min.). @ -As above X-rays interpreted by me (1pt min.). @ -None done CT interpreted by me (1pt min.). @ -no U/S interpreted by me (1pt. min.). @ -None done What testing was considered but not performed or refused? (CT, X-rays, U/S, labs)? Why? @ -None What meds were considered but not given or refused? Why? @ -None Did you discuss the management of the patient with other professionals (professionals i.e. MINH Thomas, HYDROSTATIC TESTER, lab, RT, psych nurse, marriage and family social worker, decorator lighting fixtures, teacher, intelligence support officer, case management social worker)? Give summary @ -Dr Manuel surgery Was smoking cessation discussed for >3mins.? @ -No Was critical care preformed (if so, how long)? @ -No Were there social determinants of health that impacted care today? How? (Homelessness, low income, unemployed, alcoholism, drug addiction, transportation, low edu. Level, literacy, decrease access to med. care, [place] [facility], rehab)? @ -No Was there de-escalation of care discussed even if they declined (Discuss DNR or withdrawal of care, Hospice)? DNR status @ -No What co-morbidities impacted this encounter? (DM, HTN, Smoking, COPD, CAD, Cancer, CVA, ARF, Chemo, Hep., AIDS, mental health diagnosis, sleep apnea, morbid obesity)? @ -Obesity Was patient admitted / discharged? Hospital course, mention meds given and route, prescriptions, significant lab abnormalities, going to OR and other pertinent info. @ -Admitted Undiagnosed new problem with uncertain prognosis? @ -No Drug Therapy requiring intensive monitoring for toxicity (Heparin, Nitro, Insulin, Cardizem)? @ -No Were any procedures done? @ -No Diagnosis/symptom? @ -Acute cholecystitis Acute, or Chronic, or Acute on Chronic? @ -Acute Uncomplicated (without systemic symptoms) or Complicated (systemic symptoms)? @ -default Side effects of treatment? @ -No Exacerbation, Progression, or Severe Exacerbation? @ -No Poses a threat to life or bodily function? How? (Chest pain, [place], [place], pneumonia, PE, COPD, DKA, ARF, appy, cholecystitis, CVA, Diverticulitis, Homicidal, Suicidal, threat to staff... and all critical care pts) @ -No - Lab Data Result diagrams: 11/29/22 06:40 11/29/22 06:40 Lab Results 11/29/22 11/29/22 11/29/22 Range/Units 06:40 06:40 06:40 WBC 13.0 H (3.8-10.6) k/uL RBC 4.83 (3.80-5.40) m/uL Hgb 15.1 (11.4-16.0) gm/dL Hct 43.6 (34.0-46.0) % MCV 90.3 (80.0-100.0) fL MCH 31.3 (25.0-35.0) pg MCHC 34.7 (31.0-37.0) g/dL RDW 12.1 (11.5-15.5) % Plt Count 319 (150-450) k/uL MPV 8.0 Neutrophils % 74 % Lymphocytes % 19 % Monocytes % 4 % Eosinophils % 2 % Basophils % 0 % Neutrophils # 9.6 H (1.3-7.7) k/uL Lymphocytes # 2.4 (1.0-4.8) k/uL Monocytes # 0.6 (0-1.0) k/uL Eosinophils # 0.2 (0-0.7) k/uL Basophils # 0.1 (0-0.2) k/uL Sodium 137 (137-145) mmol/L Potassium 4.1 (3.5-5.1) mmol/L Chloride 102 (98-107) mmol/L Carbon Dioxide 26 (22-30) mmol/L Anion Gap 9 mmol/L BUN 13 (7-17) mg/dL Creatinine 0.79 (0.52-1.04) mg/dL Est GFR (CKD-EPI)AfAm >90 (>60 ml/min/1.73 sqM) Est GFR (CKD-EPI)NonAf >90 (>60 ml/min/1.73 sqM) Glucose 115 H (74-99) mg/dL Calcium 9.5 (8.4-10.2) mg/dL Total Bilirubin 0.8 (0.2-1.3) mg/dL AST 19 (14-36) U/L ALT 33 (4-34) U/L Alkaline Phosphatase 96 (38-126) U/L Troponin I <0.012 (0.000-0.034) ng/mL Total Protein 8.3 H (6.3-8.2) g/dL Albumin 4.7 (3.5-5.0) g/dL Amylase 55 (30-110) U/L Lipase 86 (23-300) U/L Urine Color Urine Appearance (Clear) Urine pH (5.0-8.0) Ur Specific [place] (1.001-1.035) Urine Protein (Negative) Urine Glucose (UA) (Negative) Urine Ketones (Negative) Urine Blood (Negative) Urine Nitrite (Negative) Urine Bilirubin (Negative) Urine Urobilinogen (<2.0) mg/dL Ur Leukocyte Esterase (Negative) Group A Strep (PCR) (Not Detectd) 11/29/22 11/29/22 Range/Units 06:40 07:01 WBC (3.8-10.6) k/uL RBC (3.80-5.40) m/uL Hgb (11.4-16.0) gm/dL Hct (34.0-46.0) % MCV (80.0-100.0) fL MCH (25.0-35.0) pg MCHC (31.0-37.0) g/dL RDW (11.5-15.5) % Plt Count (150-450) k/uL MPV Neutrophils % % Lymphocytes % % Monocytes % % Eosinophils % % Basophils % % Neutrophils # (1.3-7.7) k/uL Lymphocytes # (1.0-4.8) k/uL Monocytes # (0-1.0) k/uL Eosinophils # (0-0.7) k/uL Basophils # (0-0.2) k/uL Sodium (137-145) mmol/L Potassium (3.5-5.1) mmol/L Chloride (98-107) mmol/L Carbon Dioxide (22-30) mmol/L Anion Gap mmol/L BUN (7-17) mg/dL Creatinine (0.52-1.04) mg/dL Est GFR (CKD-EPI)AfAm (>60 ml/min/1.73 sqM) Est GFR (CKD-EPI)NonAf (>60 ml/min/1.73 sqM) Glucose (74-99) mg/dL Calcium (8.4-10.2) mg/dL Total Bilirubin (0.2-1.3) mg/dL AST (14-36) U/L ALT (4-34) U/L Alkaline Phosphatase (38-126) U/L Troponin I (0.000-0.034) ng/mL Total Protein (6.3-8.2) g/dL Albumin (3.5-5.0) g/dL Amylase (30-110) U/L Lipase (23-300) U/L Urine Color Light Yellow Urine Appearance Clear (Clear) Urine pH 6.0 (5.0-8.0) Ur Specific [place] 1.008 (1.001-1.035) Urine Protein Negative (Negative) Urine Glucose (UA) Negative (Negative) Urine Ketones Negative (Negative) Urine Blood Negative (Negative) Urine Nitrite Negative (Negative) Urine Bilirubin Negative (Negative) Urine Urobilinogen <2.0 (<2.0) mg/dL Ur Leukocyte Esterase Negative (Negative) Group A Strep (PCR) NOT DETECTED (Not Detectd) - EKG Data EKG shows normal: sinus rhythm (Ventricular rate 98, AL interval 0.154, QRS 0.81, QTC 0.382, sinus rhythm) Disposition Clinical Impression: Cholecystitis Disposition: ADMITTED IP TO THIS [facility] Referrals: Perez Leonard DO [Primary Care Provider] - 1-2 days Decision Date: 11/29/22 Decision Time: 09:13
[2022-11-29 06:58] LABS: Appearance,Urine Clear (Clear); Basophils # (A) 0.1 k/uL (0-0.2); Basophils % (A) 0 %; Bilirubin,Urine Negative (Negative); Blood,Urine Negative (Negative); Color,Urine Light Yellow; Eosinophils # (A) 0.2 k/uL (0-0.7); Eosinophils % (A) 2 %; Glucose,Urine (UA) Negative (Negative); HCT 43.6 % (34.0-46.0); HGB 15.1 gm/dL (11.4-16.0); Ketones,Urine Negative (Negative); Leukocyte Esterase,Urine Negative (Negative); Lymphocytes # (A) 2.4 k/uL (1.0-4.8); Lymphocytes % (A) 19 %; MCH 31.3 pg (25.0-35.0); MCHC 34.7 g/dL (31.0-37.0); MCV 90.3 fL (80.0-100.0); Monocytes # (A) 0.6 k/uL (0-1.0); Monocytes % (A) 4 %; Neutrophils # (A) 9.6 k/uL (1.3-7.7); Neutrophils % (A) 74 %; Nitrite,Urine Negative (Negative); Platelet Count 319 k/uL (150-450); Protein,Urine Negative (Negative); RBC 4.83 m/uL (3.80-5.40); RDW 12.1 % (11.5-15.5); Specific Gravity,Urine 1.008 (1.001-1.035); Urobilinogen,Urine <2.0 mg/dL (<2.0)
[2022-11-29 07:02] LABS: ALT 33 U/L (4-34); AST 19 U/L (14-36); African American GFR (CKD) >90 (>60 ml/min/1.73 sqM); Albumin 4.7 g/dL (3.5-5.0); Alkaline Phosphatase 96 U/L (38-126); Amylase 55 U/L (30-110); Anion Gap 9 mmol/L; Blood Urea Nitrogen 13 mg/dL (7-17); Calcium 9.5 mg/dL (8.4-10.2); Carbon Dioxide 26 mmol/L (22-30); Chloride 102 mmol/L (98-107); Glucose 115 mg/dL (74-99); Lipase 86 U/L (23-300); Non-African American GFR(CKD) >90 (>60 ml/min/1.73 sqM); Potassium 4.1 mmol/L (3.5-5.1); Sodium 137 mmol/L (137-145); Total Bilirubin 0.8 mg/dL (0.2-1.3); Total Protein 8.3 g/dL (6.3-8.2)
--- NOTE | 2022-11-29 08:55 | CT ---
EXAMINATION TYPE: CT abdomen pelvis w con DATE OF EXAM: 11/29/2022 COMPARISON: Pain HISTORY: Generalized abd pain CT DLP: 2322.1 mGycm Automated exposure control for dose reduction was used. CONTRAST: CT scan of the abdomen pelvis is performed with IV Contrast, patient injected with 100 mL of Isovue 3 00. FINDINGS- LUNG BASES- No significant abnormality is appreciated. LIVER/GB- cholelithiasis with distended gallbladder and pericholecystic fluid suggestive of acute c holecystitis. PANCREAS- No gross abnormality is seen. SPLEEN- No gross abnormality is seen. ADRENALS- No gross abnormality is seen. KIDNEYS/BLADDER- no hydronephrosis nephrolithiasis or renal mass. BOWEL- nonspecific LYMPH NODES- No greater than 1cm abdominal or pelvic lymph nodes are appreciated. OSSEOUS STRUCTURES- No significant abnormality is seen. OTHER- surgical clips in the pelvis. Aorta of normal caliber. IMPRESSION- 1. Findings suggestive of cholelithiasis with acute cholecystitis.
[2022-11-29] MEDS ORDERED: PIPERACILLIN-TAZOBACTAM 3.375 GM in SODIUM CHLORIDE 0.9% 100 ML IVPB STA (09:10)
[2022-11-29] MEDS ORDERED: NALOXONE 0.4 MG/ML 1 ML VIAL IV PRN ×2 (09:10→14:17)
[2022-11-29] MEDS ORDERED: ONDANSETRON 4 MG/2 ML VIAL IVP PRN (09:10)
[2022-11-29] MEDS ORDERED: HYDROmorphone 0.5 MG/0.5 ML SYRINGE IVP PRN ×2 (09:10→14:17)
[2022-11-29] MEDS: SODIUM CHLORIDE 0.9% 1,000 ML IV SCH ×2 (09:32→22:07)
[2022-11-29] MEDS ORDERED: IV FLUID CONTINUATION 700 ML IV ONE (10:59)
[2022-11-29] MEDS ORDERED: HEPARIN SODIUM,PORCINE/PF 5,000 UNIT/0.5 ML SYRINGE SQ ONE (11:31)
[2022-11-29] MEDS ORDERED: DEXAMETHASONE SOD PHOSPHATE 4 MG/ML 1 ML VIAL IVP ONE (11:41)
[2022-11-29] MEDS ORDERED: LIDOCAINE 2% INJ 20 MG/ML (2 ML VIAL) ONE (12:41)
[2022-11-29] MEDS ORDERED: PROPOFOL 10 MG/ML 20 ML VIAL IV ONE (12:41)
[2022-11-29] MEDS ORDERED: GLYCOPYRROLATE 0.2 MG/ML 2 ML VIAL ONE (12:41)
[2022-11-29] MEDS ORDERED: HEPARIN SODIUM,PORCINE 5,000 UNIT/ML 1 ML VIAL ONE (12:41)
[2022-11-29] MEDS ORDERED: SUCCINYLCHOLINE CHLORIDE 200 MG/10 ML VIAL IV ONE (12:41)
[2022-11-29] MEDS ORDERED: fentaNYL (PF) 50 MCG/ML 2 ML AMP ONE (12:41)
[2022-11-29] MEDS ORDERED: ROCURONIUM 10 MG/ML (5 ML VIAL) IV ONE (12:41)
[2022-11-29] MEDS ORDERED: NEOSTIGMINE 1 MG/ML 10 ML VIAL ONE (12:41)
[2022-11-29] MEDS ORDERED: MIDAZOLAM 2 MG/2 ML VIAL ONE (12:41)
[2022-11-29] MEDS ORDERED: HYDROmorphone (PF) 1 MG/ML ONE (12:41)
[2022-11-29] MEDS ORDERED: LACTATED RINGERS 1,000 ML IV ONE ×2 (13:03→14:17)
[2022-11-29] MEDS ORDERED: BUPIVACAIN-EPI 0.25%-1:200,000 30 ML VIAL SQ ONE (14:11)
[2022-11-29] MEDS ORDERED: HYDROcodone/APAP 5-325MG 1 EACH TAB PO PRN (14:17)
[2022-11-29] MEDS ORDERED: METOCLOPRAMIDE 5 MG/ML 2 ML VIAL IVP PRN (14:17)
[2022-11-29] MEDS ORDERED: traMADol 50 MG TAB PO PRN (14:17)
[2022-11-29] MEDS: HEPARIN SODIUM,PORCINE/PF 5,000 UNIT/0.5 ML SYRINGE SQ SCH ×2 (16:28→22:50)
[2022-11-29] MEDS: PIPERACILLIN-TAZOBACTAM 3.375 GM in SODIUM CHLORIDE 0.9% 100 ML IVPB SCH ×2 (16:29→22:50)
[2022-11-29] MEDS ORDERED: KETOROLAC 15 MG/ML 1 ML VIAL IVP SCH (18:00)
[2022-11-29] MEDS: HYDROmorphone 1 MG/ML 1 ML SYRINGE IVP PRN ×2 (18:02→22:50)
[2022-11-29] MEDS: KETOROLAC 15 MG/ML 1 ML VIAL IVP SCH (20:57)
--- NOTE | 2022-11-30 02:35 | P.CONS ---
History of Present Illness - Reason for Consult Consult date: 11/29/22 Medical management - Chief Complaint Abdominal pain - History of Present Illness Patient is a 41-year-old female with a known history of atrial fibrillation currently not on anticoagulation, family history of colon cancer, prior history of smoking presents to ER with complaints of abdominal pain mainly diffuse and right upper quadrant of the past 2 days. Patient felt nauseated. Denies any episodes of vomiting. No recent illnesses or diarrhea. Denies any chest pain or shortness of breath. Patient had an episode of atrial fibrillation about 10 years ago. Currently not on any medications for that. CT of the abdomen pelvis showed findings suggestive of cholelithiasis with acute cholecystitis. Laboratory data showed WBC 13.0 hemoglobin 14.1 and platelets 319 Sodium 137 potassium 4.1 chloride 102 bicarb is 26 BUN 13 and creatinine 0.79 and blood sugar is 115 and calcium 9.5 Amylase 55 lipase 86 Urinalysis is negative for infection Review of Systems Constitutional: Patient denies any fever or chills . no Generalized weakness. Abdomen: Patient is having nausea and abdominal pain no diarrhea. Constipation issues. Cardiovascular: Patient denies any chest pain or short of breath no palpitations. Respiratory: patient denied any cough . no sputum production. No shortness of breath Neurologic: Patient denied any numbness or tingling headache. Musculoskeletal: Patient denies any complaints of joint swelling or deformity. Skin: Negative Psychiatric: Negative Endocrine: No heat or cold intolerance. No recent weight gain. Genitourinary: No dysuria or hematuria. All other 14 point ROS negative except the above Past Medical History Past Medical History: Atrial Fibrillation Additional Past Medical History / Comment(s): Family hx colon cancer History of Any Multi-Drug Resistant Organisms: None Reported Past Surgical History: Section, Tonsillectomy, Tubal Ligation Additional Past Surgical History / Comment(s): C-S x4. colonoscopy x2 normal. Eye muscle surg as child Past Anesthesia/Blood Transfusion Reactions: Previous Problems w/ Anesthesia Additional Past Anesthesia/Blood Transfusion Reaction / Comm: States BP went low with anesthesia w/ C-S x1. Past Psychological History: No Psychological Hx Reported Additional Psychological History / Comment(s): Pt resides with her spouse and 4 children. She is independent. Smoking Status: Never smoker Past Alcohol Use History: None Reported Additional Past Alcohol Use History / Comment(s): Pt started smoking in 1989 and quit in 2004. Past Drug Use History: None Reported - Past Family History Mother Family Medical History: Cancer Additional Family Medical History / Comment(s): colon cancer Father Family Medical History: Pneumonia, Pulmonary Embolus Additional Family Medical History / Comment(s): Father with PE while he had pneumonia. Medications and Allergies Home Medications Medication Instructions Recorded Confirmed Type Ubrogepant [Ubrelvy] 50 mg PO BID PRN 06/18/20 11/29/22 History Allergies Allergy/AdvReac Type Severity Reaction Status Date / Time No Known Allergies Allergy Verified 11/29/22 11:00 Physical Exam Vitals: Vital Signs Temp Pulse Pulse Pulse Resp BP BP 11/29/22 17:27 79 112/71 11/29/22 16:57 85 129/91 11/29/22 16:27 91 115/81 11/29/22 16:12 96 127/71 11/29/22 15:57 87 16 124/78 11/29/22 15:42 87 16 131/85 11/29/22 15:27 98.7 F 88 17 132/83 11/29/22 15:13 11/29/22 15:00 78 16 138/79 11/29/22 14:43 80 16 131/75 11/29/22 14:28 97.8 F 88 18 153/59 11/29/22 11:01 98.7 F 111 H 16 150/65 11/29/22 10:19 97 16 141/86 11/29/22 09:28 98 16 126/70 11/29/22 08:54 100 16 130/92 11/29/22 06:22 98.4 F 114 H 16 138/83 Pulse Ox 11/29/22 17:27 95 11/29/22 16:57 90 L 11/29/22 16:27 89 L 11/29/22 16:12 11/29/22 15:57 96 11/29/22 15:42 94 L 11/29/22 15:27 93 L 11/29/22 15:13 94 L 11/29/22 15:00 99 11/29/22 14:43 99 11/29/22 14:28 97 11/29/22 11:01 99 11/29/22 10:19 99 11/29/22 09:28 99 11/29/22 08:54 96 11/29/22 06:22 98 Intake and Output 11/29/22 11/29/22 11/29/22 06:59 14:59 22:59 Intake Total 1500 200 Output Total 50 40 Balance 1450 160 Intake: IV 1500 200 Output: Drainage 40 Right Abdomen 40 Estimated Blood Loss 50 Other: # Voids 0 Weight 122.47 kg 122.47 kg PHYSICAL EXAMINATION: Patient is lying in the bed comfortably, no acute distress, awake alert and oriented.. HEENT: Normocephalic. Neck is supple. Pupils reactive. Nostrils clear. Oral cavity is moist. Neck reveals no JVD, carotid bruits, or thyromegaly. CHEST EXAMINATION: Trachea is central. Symmetrical expansion. Bibasilar diminished sounds. CARDIAC: Normal S1, S2 with no gallops. No murmurs ABDOMEN: Soft. Bowel sounds present. Mild tenderness at the surgical sites. KIMBERLEE drain in place. No organomegaly. No abdominal bruits. Extremities: reveal no edema. No clubbing or cyanosis Neurologically awake, alert, oriented x3 with well-coordinated movements. No focal deficits noted Skin: No rash or skin lesions. Psychiatric: Coperative. Nonsuicidal, Musculoskeletal: No joint swelling or deformity. Normal range of motion. Results CBC & Chem 7: 11/29/22 06:40 11/29/22 06:40 Labs: Abnormal Lab Results - Last 24 Hours (Table) 11/29/22 11/29/22 Range/Units 06:40 06:40 WBC 13.0 H (3.8-10.6) k/uL Neutrophils # 9.6 H (1.3-7.7) k/uL Glucose 115 H (74-99) mg/dL Total Protein 8.3 H (6.3-8.2) g/dL Assessment and Plan Assessment: Acute cholecystitis status post laparoscopic cholecystectomy found to be gangrenous cholecystitis. Postoperative day 0 Abdominal pain 1 episode of atrial fibrillation 10 years ago currently not on any medications. DVT prophylaxis and GI prophylaxis Plan: Patient will be continued on IV hydration and antibiotics in the form of Zosyn. Follow-up intra-abdominal cultures. Encourage incentive spirometry. CBC CMP tomorrow. Further recommendations based on the clinical course. Thank you for your consult.
[2022-11-30] MEDS: KETOROLAC 15 MG/ML 1 ML VIAL IVP SCH ×4 (03:00→20:59)
[2022-11-30] MEDS: SODIUM CHLORIDE 0.9% 1,000 ML IV SCH ×2 (06:12→16:41)
[2022-11-30] MEDS: PIPERACILLIN-TAZOBACTAM 3.375 GM in SODIUM CHLORIDE 0.9% 100 ML IVPB SCH ×2 (08:28→15:17)
[2022-11-30] MEDS: HEPARIN SODIUM,PORCINE/PF 5,000 UNIT/0.5 ML SYRINGE SQ SCH ×2 (08:35→15:18)
[2022-11-30 09:46] LABS: Basophils % (A) 0 %; Eosinophils # (A) 0.1 k/uL (0-0.7); Eosinophils % (A) 0 %; HCT 39.7 % (34.0-46.0); Lymphocytes # (A) 2.4 k/uL (1.0-4.8); Lymphocytes % (A) 17 %; MCH 30.5 pg (25.0-35.0); MCHC 32.7 g/dL (31.0-37.0); MCV 93.3 fL (80.0-100.0); Mean Platelet Volume 7.9; Monocytes # (A) 0.8 k/uL (0-1.0); Monocytes % (A) 6 %; Neutrophils % (A) 76 %; Platelet Count 324 k/uL (150-450); RBC 4.25 m/uL (3.80-5.40); RDW 12.4 % (11.5-15.5); WBC 14.5 k/uL (3.8-10.6)
[2022-11-30 09:56] LABS: ALT 77 U/L (4-34); AST 48 U/L (14-36); African American GFR (CKD) >90 (>60 ml/min/1.73 sqM); Albumin/Globulin Ratio 1.3; Alkaline Phosphatase 83 U/L (38-126); Anion Gap 9 mmol/L; Blood Urea Nitrogen 12 mg/dL (7-17); Carbon Dioxide 24 mmol/L (22-30); Chloride 105 mmol/L (98-107); Glucose 89 mg/dL (74-99); Non-African American GFR(CKD) 88 (>60 ml/min/1.73 sqM); Potassium 3.6 mmol/L (3.5-5.1); Sodium 138 mmol/L (137-145)
--- NOTE | 2022-11-30 16:09 | P.PN ---
Subjective Progress Note Date: 11/30/22 CHIEF COMPLAINT: Cholecystitis HISTORY OF PRESENT ILLNESS: Patient is status post laparoscopic cholecystectomy postop day #1. Patient reports that her pain is better than yesterday. She does complain of some incisional pain on that right side. KIMBERLEE drain with 40 mL serosanguineous output. Afebrile. WBC 14.5 Hgb 13 platelets 324 AST 48 ALT 77 and total bilirubin 1.0 Patient seen and examined with Dr. salazar PHYSICAL EXAM: VITAL SIGNS: Reviewed. GENERAL: Well-developed in no acute distress. HEENT: No sclera icterus. Extraocular movements grossly intact. Moist buccal mucosa. Head is atraumatic, normocephalic. ABDOMEN: Soft. Nondistended. Tender at incision sites. KIMBERLEE drain in place. Incision sites tried blood noted NEUROLOGIC: Alert and oriented. Cranial nerves II through XII grossly intact. ASSESSMENT: 1. Acute cholecystitis status post laparoscopic cholecystectomy PLAN: -Anticipate discharge tomorrow -Continue antibiotics -Ordered abdominal binder -Advance diet to regular -Encourage patient to ambulate -DVT prophylaxis subcu heparin Physician Manager Art note has been reviewed by physician. Signing provider agrees with the documented findings, assessment, and plan of care. Objective - Vital Signs Vital signs: Vital Signs Temp 98.5 F 11/30/22 14:04 Pulse 95 11/30/22 14:04 Resp 12 11/30/22 14:04 BP 122/81 11/30/22 14:04 Pulse Ox 96 11/30/22 14:04 FiO2 Intake & Output 11/29/22 11/30/22 11/30/22 18:59 06:59 18:59 Intake Total 1700 125 Output Total 90 40 40 Balance 1610 -40 85 Weight 122.47 kg Intake: IV 1700 Oral 125 Output: Drainage 40 40 40 Right Abdomen 40 40 40 Estimated Blood Loss 50 Other: # Voids 0 2 3 - Labs CBC & Chem 7: 11/30/22 09:02 11/30/22 09:02 Labs: Abnormal Lab Results - Last 24 Hours (Table) 11/30/22 11/30/22 Range/Units 09:02 09:02 WBC 14.5 H (3.8-10.6) k/uL Neutrophils # 11.0 H (1.3-7.7) k/uL AST 48 H (14-36) U/L ALT 77 H (4-34) U/L
[2022-12-01] MEDS: HEPARIN SODIUM,PORCINE/PF 5,000 UNIT/0.5 ML SYRINGE SQ SCH ×2 (00:16→08:03)
[2022-12-01] MEDS: PIPERACILLIN-TAZOBACTAM 3.375 GM in SODIUM CHLORIDE 0.9% 100 ML IVPB SCH ×2 (00:18→08:54)
[2022-12-01] MEDS: SODIUM CHLORIDE 0.9% 1,000 ML IV SCH ×2 (02:53→12:39)
[2022-12-01] MEDS: KETOROLAC 15 MG/ML 1 ML VIAL IVP SCH ×2 (03:19→08:55)
--- NOTE | 2022-12-01 05:47 | P.PN ---
Subjective Progress Note Date: 11/30/22 - Reason for Consult Consult date: 11/29/22 Medical management - Chief Complaint Abdominal pain - History of Present Illness Patient is a 41-year-old female with a known history of atrial fibrillation currently not on anticoagulation, family history of colon cancer, prior history of smoking presents to ER with complaints of abdominal pain mainly diffuse and right upper quadrant of the past 2 days. Patient felt nauseated. Denies any episodes of vomiting. No recent illnesses or diarrhea. Denies any chest pain or shortness of breath. Patient had an episode of atrial fibrillation about 10 years ago. Currently not on any medications for that. CT of the abdomen pelvis showed findings suggestive of cholelithiasis with acute cholecystitis. Laboratory data showed WBC 13.0 hemoglobin 14.1 and platelets 319 Sodium 137 potassium 4.1 chloride 102 bicarb is 26 BUN 13 and creatinine 0.79 and blood sugar is 115 and calcium 9.5 Amylase 55 lipase 86 Urinalysis is negative for infection 11/30/2022 Patient is seen and evaluated in follow-up currently sitting up in the chair and is status post cholecystectomy and maintained on antibiotics and gentle IV hydration. Patient was continued is nothing by mouth and awaiting surgical recommendations to start diet. Patient reports to a lot of belching and denies passing gas or bowel movement. Will follow-up with repeat labs in a.m. and also encouraged abdominal binder use and increased activity as tolerated. Patient with incentive spirometer at the bedside encourage the patient to continue using at least 10 times every hour while awake. Patient does report some abdominal pain at the incision site and continues with KIMBERLEE drain with serosanguineous output. Patient is currently afebrile with no reports of chest pain or shortness of breath. Patient reports she did have some nausea although has resolved and feels better than yesterday. Review of systems: Constitutional: No reports of fatigue, fever, or chills Cardiovascular: No reports of chest pain or palpitations Respiratory: No reports of shortness of breath or cough GI: reports of occasional nausea, no vomiting, or diarrhea, reports belching with no calf or bowel movement yet : No reports of dysuria or retention Neurovascular: No reports of weakness or numbness All medications have been reviewed Active Medications Hydrocodone Bitart/Acetaminophen (Hydrocodone/Apap 5-325mg 1 Each Tab) 1 each PO Q4HR PRN PRN Reason: Moderate Pain (Scale 4 to 6) Heparin Sodium (Porcine) (Heparin Sodium,Porcine/Pf 5,000 Unit/0.5 Ml Syringe) 5,000 unit SQ Q8HR [facility] Last Admin: 11/30/22 15:18 Dose: Not Given Hydromorphone HCl (Hydromorphone 0.5 Mg/0.5 Ml Syringe) 0.5 mg IVP Q3HR PRN PRN Reason: Moderate Pain (Scale 4 to 6) Last Admin: 11/30/22 12:57 Dose: 0.5 mg Hydromorphone HCl (Hydromorphone 0.5 Mg/0.5 Ml Syringe) 0.5 mg IVP Q3HR PRN PRN Reason: Moderate Pain (Scale 4 to 6) Last Admin: 11/29/22 14:49 Dose: 0.5 mg Hydromorphone HCl (Hydromorphone 1 Mg/Ml 1 Ml Syringe) 1 mg IVP Q4HR PRN PRN Reason: Severe Pain (Scale 7 to 10) Last Admin: 11/29/22 22:50 Dose: 1 mg Sodium Chloride (Saline 0.9%) 1,000 mls @ 100 mls/hr IV .Q10H [facility] Last Admin: 11/30/22 06:12 Dose: Not Given Piperacillin Sod/Tazobactam (Sod 3.375 gm/ Sodium Chloride) 100 mls @ 25 mls/hr IVPB Q8HR [facility]; Protocol Last Admin: 11/30/22 15:17 Dose: 25 mls/hr Ketorolac Tromethamine (Ketorolac 15 Mg/Ml 1 Ml Vial) 15 mg IVP Q6H [facility] Stop: 12/01/22 09:01 Last Admin: 11/30/22 15:17 Dose: 15 mg Metoclopramide HCl (Metoclopramide 5 Mg/Ml 2 Ml Vial) 10 mg IVP Q6H PRN PRN Reason: Nausea And Vomiting Naloxone HCl (Naloxone 0.4 Mg/Ml 1 Ml Vial) 0.2 mg IV Q2M PRN PRN Reason: Opioid Reversal Ondansetron HCl (Ondansetron 4 Mg/2 Ml Vial) 4 mg IVP Q8HR PRN PRN Reason: Nausea And Vomiting Last Admin: 11/29/22 11:41 Dose: 4 mg Tramadol HCl (Tramadol 50 Mg Tab) 50 mg PO Q6H PRN PRN Reason: Moderate Pain (Scale 4 to 6) PHYSICAL EXAMINATION: Patient is sitting up in the chair comfortably, no acute distress, awake alert and oriented.. Morbidly obese HEENT: Normocephalic. Neck is supple. Pupils reactive. Nostrils clear. Oral cavity is moist. Neck reveals no JVD, carotid bruits, or thyromegaly. CHEST EXAMINATION: Trachea is central. Symmetrical expansion. Bibasilar diminished sounds. CARDIAC: Normal S1, S2 with no gallops. No murmurs ABDOMEN: Soft. Sluggish sounds present. Mild tenderness at the surgical sites. KIMBERLEE drain in place with serosanguineous drainage noted. No organomegaly. No abdominal bruits. Extremities: reveal no edema. No clubbing or cyanosis Neurologically awake, alert, oriented x3 with well-coordinated movements. No focal deficits noted Skin: No rash or skin lesions. Psychiatric: Cooperative. Non-suicidal, Musculoskeletal: No joint swelling or deformity. Normal range of motion. Assessment: Acute cholecystitis status post laparoscopic cholecystectomy found to be gangrenous cholecystitis. Postoperative day 1 Abdominal pain secondary to above 1 episode of atrial fibrillation 10 years ago currently not on any medications. Currently sinus rhythm Morbid obesity with a BMI of 49.4 DVT prophylaxis and GI prophylaxis Full code Plan: Patient will be continued on IV hydration and antibiotics in the form of Zosyn. Follow-up intra-abdominal cultures. Encourage incentive spirometry at least 10 times every hour while awake. Discussed with surgery PA at bedside and agreeable and okay with abdominal binder. Recommend follow-up labs in the a.m. Encouraged to increase activity as tolerated. Diet is being advanced per surgery and will monitor tolerance We will continue to follow with general surgery during hospitalization. Thank you kindly for this consultation. Possible discharge in the next 24-48 hours The impression and plan of care has been dictated by Genevieve Bo, Nurse Practitioner as directed. Dr. Ellen MD I have performed a history and examination and MDM of this patient, discussed the same with the dictator, and agree with the dictator's assessment and plan as written ,documented as a scribe. Based on total visit time, I have performed more than 50% of the visit. Objective - Vital Signs Vital signs: Vital Signs Temp 98.5 F 11/30/22 14:04 Pulse 95 11/30/22 14:04 Resp 12 11/30/22 14:04 BP 122/81 11/30/22 14:04 Pulse Ox 96 11/30/22 14:04 FiO2 Intake & Output 11/29/22 11/30/22 11/30/22 18:59 06:59 18:59 Intake Total 1700 125 Output Total 90 40 40 Balance 1610 -40 85 Weight 122.47 kg Intake: IV 1700 Oral 125 Output: Drainage 40 40 40 Right Abdomen 40 40 40 Estimated Blood Loss 50 Other: # Voids 0 2 3 - Labs CBC & Chem 7: 11/30/22 09:02 11/30/22 09:02 Labs: Abnormal Lab Results - Last 24 Hours (Table) 11/30/22 11/30/22 Range/Units 09:02 09:02 WBC 14.5 H (3.8-10.6) k/uL Neutrophils # 11.0 H (1.3-7.7) k/uL AST 48 H (14-36) U/L ALT 77 H (4-34) U/L
[2022-12-01 06:37] VITALS: BP 111/75; PULSE 97; TEMP 98.4
[2022-12-01 09:58] VITALS: RESP 16
[2022-12-01 10:53] LABS: Basophils # (A) 0.06 X 10*3/uL (0.00-0.10); Basophils % (A) 0.6 %; Eosinophils # (A) 0.36 X 10*3/uL (0.04-0.35); Eosinophils % (A) 3.7 %; HGB 11.1 g/dL (12.0-15.0); Immature Grans, Automated 0.2 %; Lymphocytes # (A) 2.86 X 10*3/uL (0.90-5.00); MCH 30.4 pg (27.0-32.0); MCHC 31.7 g/dL (32.0-37.0); MCV 95.9 fL (80.0-97.0); Mean Platelet Volume 10.8 fL (9.5-12.2); Monocytes # (A) 0.89 X 10*3/uL (0.20-1.00); NRBC Per 100 WBC 0 /100 WBCS (0.0-0.0); Neutrophils # (A) 5.67 X 10*3/uL (1.80-7.70); Neutrophils % (A) 57.5 %; Platelet Count 240 X 10*3/uL (140-440); RBC 3.65 X 10*6/uL (4.10-5.20); RDW 12.4 % (11.5-14.5); WBC 9.86 X 10*3/uL (4.50-10.00)
--- NOTE | 2022-12-01 11:17 | P.GSHP ---
History of Present Illness H&P Date: 11/29/22 Chief Complaint: right upper quadrant pain this is a 41-year-old female who presents to the emergency room complaints of upper quadrant pain. Her CAT scan is suggestive of acute cholecystitis. Patient has had pain off and on for the last several months. Past Medical History Past Medical History: Atrial Fibrillation Additional Past Medical History / Comment(s): Family hx colon cancer History of Any Multi-Drug Resistant Organisms: None Reported Past Surgical History: Section, Tonsillectomy, Tubal Ligation Additional Past Surgical History / Comment(s): C-S x4. colonoscopy x2 normal. Eye muscle surg as child Past Anesthesia/Blood Transfusion Reactions: Previous Problems w/ Anesthesia Additional Past Anesthesia/Blood Transfusion Reaction / Comment(s): States BP went low with anesthesia w/ C-S x1. Past Psychological History: No Psychological Hx Reported Additional Psychological History / Comment(s): Pt resides with her spouse and 4 children. She is independent. Smoking Status: Never smoker Past Alcohol Use History: None Reported Additional Past Alcohol Use History / Comment(s): Pt started smoking in 1989 and quit in 2004. Past Drug Use History: None Reported - Past Family History Mother Family Medical History: Cancer Additional Family Medical History / Comment(s): colon cancer Father Family Medical History: Pneumonia, Pulmonary Embolus Additional Family Medical History / Comment(s): Father with PE while he had pneumonia. Medications and Allergies Home Medications Medication Instructions Recorded Confirmed Type Ubrogepant [Ubrelvy] 50 mg PO BID PRN 06/18/20 11/29/22 History Allergies Allergy/AdvReac Type Severity Reaction Status Date / Time No Known Allergies Allergy Verified 11/29/22 11:00 Surgical - Exam Vital Signs Temp Pulse Resp BP Pulse Ox 98.4 F 114 H 16 138/83 98 11/29/22 06:22 11/29/22 06:22 11/29/22 06:22 11/29/22 06:22 11/29/22 06:22 - General well developed, well nourished, moderate distress - Eyes PERRL - ENT normal pinna, normal nares - Neck no masses - Respiratory normal expansion - Cardiovascular Rhythm: regular - Abdomen Marked right upper quadrant tenderness Abdomen: soft Results - Labs 12/01/22 07:00 11/30/22 09:02 Abnormal Lab Results - Last 24 Hours (Table) 12/01/22 Range/Units 07:00 RBC 3.65 L (4.10-5.20) X 10*6/uL Hgb 11.1 L (12.0-15.0) g/dL Hct 35.0 L (37.2-46.3) % MCHC 31.7 L (32.0-37.0) g/dL Eosinophils # 0.36 H (0.04-0.35) X 10*3/uL Assessment and Plan Plan: acute cholecystitis. Patient be scheduled for laparoscopic cholecystectomy today.
[2022-12-01 11:19] LABS: African American GFR (CKD) 98.1 (60.0-200.0); Albumin 3.6 g/dL (3.8-4.9); Albumin/Globulin Ratio 1.51 (1.60-3.17); Anion Gap 10.9 mmol/L (10.00-18.00); BUN/Creat Ratio 13.27 Ratio (12.00-20.00); Blood Urea Nitrogen 11.2 mg/dL (9.0-27.0); Calcium 8.7 mg/dL (8.7-10.3); Carbon Dioxide 22.6 mmol/L (20.0-27.5); Globulin 2.4 g/dL (1.6-3.3); Non-African American GFR(CKD) 84.6 (60.0-200.0); Potassium 4.2 mmol/L (3.5-5.5); Total Bilirubin 0.6 mg/dL (0.30-1.20)
--- NOTE | 2022-12-01 14:10 | P.DS ---
Providers Date of admission: 11/29/22 09:46 Expected date of discharge: 12/01/22 Attending physician: Jonathan Manuel Consults: 11/29/22 15:03 Consult Physician Routine Consulting Provider: Lucas Adams Consult Reason/Comments: med managment Do you want consulting provider notified?: Yes Primary care physician: Perez Horacio [facility] Course: Discharge diagnosis 1. Acute cholecystitis status post laparoscopic cholecystectomy Hospital course This is a 41-year-old female who presented with right upper quadrant abdominal pain she was found to have evidence of acute cholecystitis. She is status post laparoscopic cholecystectomy. Patient tolerated surgery well. Her pain is controlled. She's tolerating diet. She is having flatus. She has been up and ambulating. She's afebrile. She is stable for discharge. Physician Bleach Machine Operator note has been reviewed by physician. Signing provider agrees with the documented findings, assessment, and plan of care. CHIEF COMPLAINT: Gangrenous cholecystitis HISTORY OF PRESENT ILLNESS: The patient is a 41-year-old female status post gangrenous cholecystitis with cholecystectomy. Pain control. She is tolerating diet. ROS: No reports of nausea and vomiting. No bowel movements. No fevers or chills. No new chest pain. No productive sputum. Morbid obesity due to excess calories PHYSICAL EXAM: VITAL SIGNS: Reviewed CONSTITUTIONAL: Well developed and in no acute distress. EYES: Conjuctivae without sclera icterus. Extraocular movements grossly intact. HEAD, EARS, NOSE, THROAT: Moist buccal mucosa. Head is atraumatic, normocephalic. Hears conversational speech. No nasal drainage. RESPIRATORY: Non-labored respirations and equal bilateral excursions. CARDIOVASCULAR: Palpable 2+ radial pulses. ABDOMEN: Incisions intact. KIMBERLEE drain intact. MUSCULOSKELETAL: No gross deformity of the lower extremities noted. No clubbing. No cyanosis. SKIN: Good skin turgor. Well perfused. NEUROLOGIC: Cranial nerves II through XII grossly intact. No focal or lateralizing signs. PSYCH: Appropriate affect. Alert and oriented to person, place and time. CLINICAL LABS: Reviewed. WBC elevated, leukocytosis ASSESSMENT: 1. Gangrenous cholecystitis 2. Morbid obesity due to excess calories PLAN: 1. Stable for discharge for KIMBERLEE drain. 2. Antibiotics for outpatient Patient Condition at Discharge: Stable Plan - Discharge Summary Discharge Rx Participant: No New Discharge Prescriptions: New HYDROcodone/APAP 5-325MG [Redrock 5-325] 1 tab PO Q6HR PRN 3 Days #12 tab PRN Reason: Pain Amoxic-Pot Clav 875-125Mg [Augmentin 875-125] 1 tab PO Q12HR 5 Days #10 tab No Action Ubrogepant [Ubrelvy] 50 mg PO BID PRN PRN Reason: Migraine Headache Discharge Medication List Ubrogepant [Ubrelvy] 50 mg PO BID PRN 06/18/20 [History] Amoxic-Pot Clav 875-125Mg [Augmentin 875-125] 1 tab PO Q12HR 5 Days #10 tab 12/01/22 [Rx] HYDROcodone/APAP 5-325MG [Redrock 5-325] 1 tab PO Q6HR PRN 3 Days #12 tab 12/01/22 [Rx] Follow up Appointment(s)/Referral(s): Perez Leonard DO [Primary Care Provider] - 1-2 days Jonathan Manuel MD [STAFF PHYSICIAN] - 12/13/22 1:30 pm Patient Instructions/Handouts: *Surgery [facility] - Laparoscopic Cholecystectomy Discharge Instructions, Low Fat Diet (DC), Darell-Davis Drain Care (DC) Activity/Diet/Wound Care/Special Instructions: No driving while taking Redrock No lifting over 10 pounds Shower daily. No soaking or tub baths for 2 weeks Very light activity until you are reevaluated at your follow up appointment with your surgeon Keep a log of KIMBERLEE drain output and bring with you to your follow-up appointment Milk/strip drains 2-3 times a day Discharge Disposition: HOME SELF-CARE
--- NOTE | 2022-12-02 16:02 | P.PN ---
Subjective Progress Note Date: 12/01/22 - Reason for Consult Consult date: 11/29/22 Medical management - Chief Complaint Abdominal pain - History of Present Illness Patient is a 41-year-old female with a known history of atrial fibrillation currently not on anticoagulation, family history of colon cancer, prior history of smoking presents to ER with complaints of abdominal pain mainly diffuse and right upper quadrant of the past 2 days. Patient felt nauseated. Denies any episodes of vomiting. No recent illnesses or diarrhea. Denies any chest pain or shortness of breath. Patient had an episode of atrial fibrillation about 10 years ago. Currently not on any medications for that. CT of the abdomen pelvis showed findings suggestive of cholelithiasis with acute cholecystitis. Laboratory data showed WBC 13.0 hemoglobin 14.1 and platelets 319 Sodium 137 potassium 4.1 chloride 102 bicarb is 26 BUN 13 and creatinine 0.79 and blood sugar is 115 and calcium 9.5 Amylase 55 lipase 86 Urinalysis is negative for infection 11/30/2022 Patient is seen and evaluated in follow-up currently sitting up in the chair and is status post cholecystectomy and maintained on antibiotics and gentle IV hydration. Patient was continued is nothing by mouth and awaiting surgical recommendations to start diet. Patient reports to a lot of belching and denies passing gas or bowel movement. Will follow-up with repeat labs in a.m. and also encouraged abdominal binder use and increased activity as tolerated. Patient with incentive spirometer at the bedside encourage the patient to continue using at least 10 times every hour while awake. Patient does report some abdominal pain at the incision site and continues with KIMBERLEE drain with serosanguineous output. Patient is currently afebrile with no reports of chest pain or shortness of breath. Patient reports she did have some nausea although has resolved and feels better than yesterday. 12/01/2022 Patient is seen in follow-up this morning reports to feeling well and anxious about going home. Patient is maintained on antibiotics per surgery recommendations and has advanced diet and tolerating. Patient is passing gas with no reports of nausea or vomiting noted. Patient has not had a bowel moveme nt yet. Patient is voiding with no difficulties. Encouraged increased activity as tolerated and frequent walking along with continued incentive spirometer use at least 10 times every hour while awake. Patient instructed to follow-up with primary care provider on discharge along with keeping general surgery appointment in the outpatient setting. Patient is afebrile with no reports of chest pain or shortness of breath noted. Labs reviewed and within normal limits. Patient is medically stable for discharge today. Review of systems: Constitutional: No reports of fatigue, fever, or chills Cardiovascular: No reports of chest pain or palpitations Respiratory: No reports of shortness of breath or cough GI: no reports of nausea, no vomiting, or diarrhea, reports passing gas with no bowel movement yet : No reports of dysuria or retention Neurovascular: No reports of weakness or numbness All medications have been reviewed PHYSICAL EXAMINATION: Patient is sitting up in the chair comfortably, no acute distress, awake alert and oriented.. Morbidly obese HEENT: Normocephalic. Neck is supple. Pupils reactive. Nostrils clear. Oral cavity is moist. Neck reveals no JVD, carotid bruits, or thyromegaly. CHEST EXAMINATION: Trachea is central. Symmetrical expansion. Bibasilar diminis hed sounds. CARDIAC: Normal S1, S2 with no gallops. No murmurs ABDOMEN: Soft. Sluggish sounds present. Mild tenderness at the surgical sites. KIMBERLEE drain in place with serosanguineous drainage noted. No organomegaly. No abdominal bruits. Extremities: reveal no edema. No clubbing or cyanosis Neurologically awake, alert, oriented x3 with well-coordinated movements. No focal deficits noted Skin: No rash or skin lesions. Psychiatric: Cooperative. Non-suicidal, Musculoskeletal: No joint swelling or deformity. Normal range of motion. Assessment: Acute cholecystitis status post laparoscopic cholecystectomy found to be gangrenous cholecystitis. Postoperative day 2 Abdominal pain secondary to above 1 episode of atrial fibrillation 10 years ago currently not on any medications. Currently sinus rhythm Morbid obesity with a BMI of 49.4 DVT prophylaxis and GI prophylaxis Full code Plan: Patient will be continued on IV hydration and antibiotics in the form of Zosyn. Patient will continue on oral antibiotics per surgery recommendations Encourage incentive spirometry at least 10 times every hour while awake. Encourage the patient to take the incentive spirometer home and continue using Recommend outpatient follow-up with primary care provider on discharge Encouraged to increase activity as tolerated. Patient is tolerating diet with no reports of nausea or vomiting noted. We will continue to follow with general surgery during hospitalization. Thank you kindly for this consultation. Patient is medically stable for discharge today. The impression and plan of care has been dictated by Genevieve Bo, Nurse Practitioner as directed. Dr. Ellen MD I have performed a history and examination and MDM of this patient, discussed the same with the dictator, and agree with the dictator's assessment and plan as written ,documented as a scribe. Based on total visit time, I have performed more than 50% of the visit. Objective - Vital Signs Vital signs: Vital Signs Temp 98.4 F 12/01/22 06:36 Pulse 97 12/01/22 06:36 Resp 16 12/01/22 09:54 BP 111/75 12/01/22 06:36 Pulse Ox 95 12/01/22 02:09 FiO2 Intake & Output 12/01/22 12/02/22 12/02/22 18:59 06:59 18:59 Output Total 20 Balance -20 Output: Drainage 20 Right Abdomen 20 Other: Voiding Method Toilet - Labs CBC & Chem 7: 12/01/22 07:00 12/01/22 07:00
--- NOTE | 2022-12-08 16:28 | P.OP ---
Date of Procedure: 11/29/22 Preoperative Diagnosis: acute cholecystitis Postoperative Diagnosis: acute cholecystitis Procedure(s) Performed: laparoscopic cholecystectomy Anesthesia: ALEX Surgeon: Jonathan Manuel Estimated Blood Loss (ml): 5 Pathology: other (gallbladder) Condition: stable Disposition: PACU Description of Procedure: The patient was placed on the operating table. The patient received a general endotracheal tube anesthesia. The patients abdomen was prepped and draped in the usual sterile fashion. Through an infraumbilical stab incision, the fascia of the anterior abdominal wall was grasped with a pair of Kochers and then the Veress needle was placed in the peritoneal cavity. Position of the Veress needle was confirmed with positive drop test. The abdomen was then insufflated. After adequate insufflation, the 10 mm trocar was placed in the peritoneal cavity. Following this the laparoscope was placed in the peritoneal cavity. The patient was placed in the head-up, right side up position and then a 5 mm trocar was placed in the right lateral and right subcostal position under direct visualization. A 8 mm trocar was placed in the epigastric position. The gallbladder was grasped in the fundus and infundibulum. Traction on the gallbladder was placed in the lateral and the cephalad positions. The triangle of Calot was visualized.. The cystic duct was bluntly dissected until the union of the cystic duct and common bile duct was seen. A critical view of safety was achieved. The cystic duct was then divided and sealed with the Harmonic scissors. A PDS Endoloop was then placed throughout the cystic duct stump. The cystic artery divided and sealed with the Harmonic scissors. The gallbladder was then removed from the liver bed using Harmonic scissors. The gallbladder was then extracted through the epigastric port site. Operative field was checked for any bleeding spots and Harmonic scissors was used to coagulate the liver bed. The abdomen was irrigated. The trocars were removed. The skin was closed using interrupted 3-0 Vicryl suture. Dermabond dressing were applied. The patient tolerated the procedure well.
== END 2022-12-01 12:40 | disposition home or self-care (01) ==
LOC: EC 06:15 → 6NMEDSUR 09:46
PROVIDERS: ADMIT Surgery; ATTEND Surgery
DX: K80.12 Calculus of gallbladder with acute and chronic cholecystitis without obstruction (principal); K82.A1 Gangrene of gallbladder in cholecystitis; G47.33 Obstructive sleep apnea (adult) (pediatric); K59.00 Constipation, unspecified; E66.01 Morbid (severe) obesity due to excess calories; Z68.42 Body mass index [BMI] 45.0-49.9, adult; Z79.899 Other long term (current) drug therapy; Z87.891 Personal history of nicotine dependence; Z86.79 Personal history of other diseases of the circulatory system; Z98.51 Tubal ligation status; Z98.891 History of uterine scar from previous surgery; Z98.890 Other specified postprocedural states; Z82.49 Family history of ischemic heart disease and other diseases of the circulatory system; Z83.6 Family history of other diseases of the respiratory system; Z80.0 Family history of malignant neoplasm of digestive organs
CPT/HCPCS: 47562; 96361; 96374; 96375; 99285; 36415; 93005; 81025 ×2; 87651; 88304; 80053 ×3; 82150; 83690; 84484; 85025 ×3; 81003; 74177; G0378 ×3; J2543 ×3; J2250; J0330; J1644 ×2; J1100; J2710; J2405; J3010; J1170 ×3; J1885 ×3; J2704; Q9967; J2001

== ENCOUNTER → 2024-06-10 | Outpatient (CLI) | payer OTHER ==
[2024-06-10 10:44] LABS: Basophils # (A) 0.05 X 10*3/uL (0.00-0.10); Basophils % (A) 0.6 %; Eosinophils # (A) 0.36 X 10*3/uL (0.04-0.35); Eosinophils % (A) 4.2 %; HCT 40.4 % (37.2-46.3); HGB 13.6 g/dL (12.0-15.0); Lymphocytes # (A) 2.07 X 10*3/uL (0.90-5.00); Lymphocytes % (A) 24.2 %; MCH 31.3 pg (27.0-32.0); MCHC 33.7 g/dL (32.0-37.0); MCV 92.9 FL (80.0-97.0); Mean Platelet Volume 11.1 FL (9.5-12.2); NRBC Per 100 WBC 0 X 10*3/uL (0.00-0.01); Neutrophils # (A) 5.45 X 10*3/uL (1.80-7.70); Neutrophils % (A) 63.6 %; Platelet Count 255 X 10*3/uL (140-440); RBC 4.35 X 10*6/uL (4.10-5.20); RDW 12.3 % (11.5-14.5); WBC 8.56 X 10*3/uL (4.50-10.00)
[2024-06-10 11:09] LABS: BUN/Creat Ratio 18.75 Ratio (12.00-20.00); Chloride 104 mmol/L (96-109); Chol/HDL Ratio 4.33 Ratio; Glucose 102 mg/dL (70-110); LDL Cholesterol,Calculated 114.6 mg/dL (0.0-131.0); Potassium 4.1 mmol/L (3.5-5.5); Sodium 139 mmol/L (135-145)
[2024-06-10 11:10] LABS: ALT 34 U/L (8-44); AST 19 U/L (13-35); Albumin 4.2 g/dL (3.8-4.9); Albumin/Globulin Ratio 1.56 Ratio (1.60-3.17); Alkaline Phosphatase 108 U/L (41-126); Calcium 9.2 mg/dL (8.7-10.3); Carbon Dioxide 23.8 mmol/L (21.6-31.8); Globulin 2.7 g/dL (1.6-3.3); T4, Free (Free Thyroxine) 1.17 ng/dL (0.80-1.80); Total Bilirubin 0.5 mg/dL (0.3-1.2); Total Protein 6.9 g/dL (6.2-8.2)
== END | disposition home or self-care (01) ==
LOC: LABWHC1 07:45
PROVIDERS: ATTEND Family Medicine
CPT/HCPCS: 36415; 80053; 80061; 83036; 84439; 84443; 84481; 85025

== ENCOUNTER → 2024-06-20 | Outpatient (CLI) | payer OTHER | END | disposition home or self-care (01) | LOC: RADMAMWWP 06-10 06:58 | PROVIDERS: ATTEND Family Medicine | DX: Z12.31 Encounter for screening mammogram for malignant neoplasm of breast (principal) | CPT/HCPCS: 77063; 77067 ==